=== PATIENT | male | born 1945 | race Caucasian/White ===

== ENCOUNTER 2018-06-14 19:01 | Inpatient (IN) ==
[2018-06-14] MEDS ORDERED: SODIUM CHLORIDE 0.9% 1,000 ML IV STA ×2 (19:51→21:01)
[2018-06-14] MEDS ORDERED: DILTIAZEM 50 MG/10 ML VIAL IV STA (20:01)
[2018-06-14 20:23] LABS: Basophils # 0.1 10*3/uL (0.0-0.2); Basophils % 0.7 % (0.0-0.8); Hematocrit 49.9 VOL% (42.0-52.0); Hemoglobin 16.7 GM/DL (14.0-18.0); Immature Granulocytes % 0.3 %; Immature Granulocytes Absolute 0.03 #; Lymphocytes # 0.2 10*3/uL (1.4-4.0); Lymphocytes % 1.6 % (21.2-54.2); Mean Corpuscular HGB Conc 33.5 GM/DL (32-36); Mean Corpuscular Hemoglobin 31 PG (27-34); Mean Corpuscular Volume 93.8 FL (87-102); Mean Platelet Volume 10.4 FL (9.6-12.0); Monocytes # 0.3 10*3/uL (0.11-0.8); Monocytes % 2.2 % (1.7-12.7); Neutrophils # 10.8 10*3/uL (1.4-7.4); Neutrophils % 95.2 % (38.7-73.9); Platelet Count 157 T/CUMM (130-400); Red Blood Count 5.32 MC/CUMM (3.8-5.5); Red Cell Distribution Width 13.4 % (9.3-17.3); White Blood Count 11.3 T/CUMM (4-12)
[2018-06-14 20:24] LABS: VBG Base Excess -5.7 MEQ/L (0-4); VBG HCO3 18.9 MEQ/L (24-28); VBG Oxygen Saturation 59.4 %; VBG PCO2 41.5 MMHG (41-51); VBG PH 7.305; VBG PO2 37.1 MMHG (17-40)
[2018-06-14] MEDS ORDERED: DILTIAZEM 100 MG VIAL.ADD IV ONE (20:25)
[2018-06-14] MEDS ORDERED: DILTIAZEM 25 MG/5 ML VIAL IV ONE (20:25)
[2018-06-14] MEDS ORDERED: SODIUM CHLORIDE 0.9% 100 ML IV ONE (20:26)
[2018-06-14] MEDS ORDERED: DILTIAZEM INJ 100 MG in SODIUM CHLORIDE 0.9% 100 ML IV SCH (20:30)
[2018-06-14 20:36] LABS: INR 1.4; PT Patient Result 14.7 SECS; Partial Thromboplastin Time 30.3 SECS (0-40)
[2018-06-14 20:43] LABS: Albumin 2.9 G/DL (3.4-5.0); Bilirubin,Total 1.7 MG/DL (0.2-1.0); Calcium 8.1 MG/DL (8.5-10.1); Osmolality,Calculated 285.5 MOS/KG (273-304); Potassium 2.8 MMOL/L (3.5-5.1); Total Protein 6.8 G/DL (6.4-8.3)
[2018-06-14 20:59] LABS: Lymphocytes 2 % (20-55); Segmented Neutrophils 88 % (50-85); Total Cells Counted 100
[2018-06-14 21:00] LABS: Burr Cells Few; Polychromasia Few
[2018-06-14 21:01] LABS: Macrocytosis Slight
[2018-06-14] MEDS ORDERED: ALBUTEROL/IPRATROPIUM 3 ML NEB RESP TX PRN (21:55)
[2018-06-14] MEDS ORDERED: ONDANSETRON 4 MG/2 ML VIAL IV PRN (21:55)
[2018-06-14] MEDS ORDERED: ALBUTEROL 2.5 MG/3 ML NEB RESP TX PRN (21:55)
[2018-06-14] MEDS ORDERED: PROMETHAZINE 25 MG/1 ML VIAL IM PRN (21:55)
[2018-06-14] MEDS ORDERED: MAGNESIUM SULF RIDER 2 GM in PREMIX 1 EACH IV PRN (22:14)
[2018-06-14] MEDS ORDERED: MAGNESIUM SULF RIDER 4 GM in PREMIX 1 EACH IV PRN (22:14)
[2018-06-14 23:02] LABS: Lactic Acid 5.8 MMOL/L (0.4-2.0)
[2018-06-15 00:01] LABS: Hepatitis A Ab IgM Quant 0.14 Index; Hepatitis A Ab IgM Result Negative (Negative); Hepatitis B Core IgM Quant < 0.05 Index; Hepatitis B Core IgM Result Negative (Negative); Hepatitis B Surface Ag Quant 0.15 Index; Hepatitis B Surface Ag Result Negative (Negative); Hepatitis C Virus Ab Quant 0.05 Index; Hepatitis C Virus Ab Result Negative (Negative)
[2018-06-15] MEDS: SODIUM CHLORIDE 0.9% 1,000 ML IV SCH ×2 (00:26→06:05)
[2018-06-15] MEDS: PANTOPRAZOLE 40 MG VIAL IV SCH (00:27)
[2018-06-15] MEDS: traZODone 50 MG TABLET PO PRN (00:27)
[2018-06-15] MEDS: METOPROLOL TARTRATE 25 MG TABLET PO SCH ×3 (00:27→20:57)
[2018-06-15] MEDS ORDERED: LEVOFLOXACIN INJ 500 MG in PREMIX 1 EACH IV SCH (00:30)
[2018-06-15] MEDS ORDERED: DILTIAZEM 25 MG/5 ML VIAL IV ONE (00:30)
[2018-06-15] MEDS ORDERED: dilTIAZem Drip 125 MG/125 ML PREMIX IV SCH (00:30)
[2018-06-15 00:34] LABS: Hematocrit 48.6 VOL% (42.0-52.0); Hemoglobin 16.2 GM/DL (14.0-18.0)
[2018-06-15] MEDS: POTASSIUM CHLORIDE RIDER 10 MEQ in PREMIX 1 EACH IV PRN ×6 (00:35→23:38)
[2018-06-15 01:36] LABS: CKMB % 1.2 %
[2018-06-15] MEDS: metroNIDAZOLE INJ 500 MG in PREMIX 1 EACH IV SCH ×3 (01:44→20:39)
[2018-06-15] MEDS ORDERED: AMIODARONE INJ 450 MG in DEXTROSE 5% 241 ML IV SCH ×2 (03:00→09:00)
[2018-06-15 03:30] LABS: Apearance,Urine CLOUDY (Clear); Bacteria,Urine Many /HPF (Few); Bilirubin,Urine Negative (Negative); Blood, Urine Large mg/dL (Negative); Glucose,Urine (UA) Negative (Negative); Granular Casts,Urine 233 /LPF (0-1); Ketones,Urine Negative (Negative); Nitrite,Urine Negative (Negative); Protein,Urine 100 MG/DL; RBC,Urine 65 /HPF (0-4); Urine Color Amber (Yellow); Urine Specific Gravity 1.016 (1.001-1.035); Urine Urobilinogen < 2.0 EU/DL (0.2-1.0)
[2018-06-15] MEDS ORDERED: SODIUM CHLORIDE 0.9% 500 ML IV ONE ×3 (04:55→18:32)
[2018-06-15 05:00] LABS: Basophils # 0.1 10*3/uL (0.0-0.2); Hematocrit 47.4 VOL% (42.0-52.0); Hemoglobin 15.8 GM/DL (14.0-18.0); Immature Granulocytes % 1.2 %; Immature Granulocytes Absolute 0.07 #; Lymphocytes # 0.1 10*3/uL (1.4-4.0); Lymphocytes % 1.9 % (21.2-54.2); Mean Corpuscular HGB Conc 33.3 GM/DL (32-36); Mean Corpuscular Hemoglobin 31 PG (27-34); Mean Corpuscular Volume 92.4 FL (87-102); Mean Platelet Volume 11.4 FL (9.6-12.0); Monocytes # 0.1 10*3/uL (0.11-0.8); Monocytes % 1.9 % (1.7-12.7); Neutrophils # 5.5 10*3/uL (1.4-7.4); Platelet Count 131 T/CUMM (130-400); Red Blood Count 5.13 MC/CUMM (3.8-5.5); Red Cell Distribution Width 13.2 % (9.3-17.3); White Blood Count 5.9 T/CUMM (4-12)
[2018-06-15] MEDS ORDERED: SODIUM BICARBONATE 50 MEQ/50 ML SYRINGE IV ONE ×4 (05:15→17:24)
[2018-06-15 05:26] LABS: Albumin 2.4 G/DL (3.4-5.0); Bilirubin,Total 1.2 MG/DL (0.2-1.0); Calcium 7.2 MG/DL (8.5-10.1); Osmolality,Calculated 290.4 MOS/KG (273-304); Potassium 3.3 MMOL/L (3.5-5.1); Total Protein 5.7 G/DL (6.4-8.3)
[2018-06-15] MEDS ORDERED: SODIUM CHLORIDE 0.9% 500 ML IV SCH (06:00)
[2018-06-15] MEDS ORDERED: SODIUM CHLORIDE 0.9% 1,000 ML IV SCH ×2 (06:30→12:30)
[2018-06-15 07:25] LABS: Band Neutrophils 24 % (0-10); Lymphocytes 3 % (20-55); Metamyelocytes 18 %; Myelocytes 18 %; Segmented Neutrophils 35 % (50-85); Total Cells Counted 100
[2018-06-15 07:26] LABS: Ovalocytes 1+; Platelet Estimate Decreased
[2018-06-15] MEDS ORDERED: HYDROCORTISONE 100 MG VIAL ONE (07:26)
[2018-06-15] MEDS ORDERED: DEXTROSE 50% 25 GM/50 ML SYRINGE IV ONE (07:26)
[2018-06-15] MEDS ORDERED: LEVOTHYROXINE 100 MCG VIAL IV ONE (07:27)
[2018-06-15] MEDS: DEXTROSE 50% 25 GM/50 ML SYRINGE IV PRN ×2 (07:30→21:19)
[2018-06-15 07:36] LABS: Lactic Acid 6.7 MMOL/L (0.4-2.0)
[2018-06-15] MEDS ORDERED: SODIUM BICARB INJ 100 MEQ in DEXTROSE 5% 1,000 ML IV SCH ×2 (08:00→10:00)
[2018-06-15] MEDS: HYDROCORTISONE 100 MG VIAL IV SCH ×3 (08:15→20:12)
[2018-06-15 08:24] LABS: ABG Base Excess -7.5 MMOL/L (-2.5-2.5); ABG HCO3 18.4 MMOL/L (20-26); ABG Oxygen Saturation 94.9 % (95-100); ABG PCO2 23.7 MM HG (35-48); ABG PH 7.414 (7.35-7.45); ABG PO2 75.7 MM HG (80-95)
[2018-06-15] MEDS ORDERED: PHENYLEPHRINE DRIP 40 MG/250 ML PREMIX IV ONE (08:55)
[2018-06-15] MEDS ORDERED: APIXABAN 5 MG TABLET PO SCH (09:00)
[2018-06-15] MEDS: PHENYLEPHRINE DRIP 40 MG/250 ML PREMIX IV PRN ×2 (09:00→18:45)
[2018-06-15] MEDS: MEROPENEM 1,000 MG in SODIUM CHLORIDE 0.9% 100 ML IV SCH ×2 (09:25→20:52)
[2018-06-15] MEDS: ASPIRIN EC 81 MG TABLET PO SCH (09:32)
[2018-06-15 10:28] LABS: Creatinine,Urine Random 236 MG/DL; Total Protein,Urine Random 329 MG/DL; Urea Nitrogen, Urine Random 392 MG/DL
[2018-06-15] MEDS: POTASSIUM CHLORIDE 20 MEQ TABLET PO SCH ×3 (10:40→19:32)
[2018-06-15] MEDS: MANNITOL IV SCH ×2 (10:49→19:29)
[2018-06-15] MEDS: SODIUM BICARB IV SCH ×2 (10:49→19:29)
[2018-06-15] MEDS: DEXTROSE 5% IV SCH ×2 (10:49→19:29)
[2018-06-15] MEDS: ALBUMIN 25% 25 GM in PREMIX 1 EACH IV SCH ×2 (11:05→19:27)
[2018-06-15] MEDS: miSOPROStol 200 MCG TABLET PO SCH ×3 (12:37→21:15)
[2018-06-15 16:20] LABS: ABG Base Excess -2.1 MMOL/L (-2.5-2.5); ABG HCO3 22.6 MMOL/L (20-26); ABG Oxygen Saturation 97.1 % (95-100); ABG PCO2 22.6 MM HG (35-48); ABG PH 7.522 (7.35-7.45); ABG PO2 82.6 MM HG (80-95); ABG TCO2 15.6 MMOL/L (23-27)
[2018-06-15 17:11] LABS: Calcium 6.8 MG/DL (8.5-10.1); Potassium 3.4 MMOL/L (3.5-5.1)
[2018-06-15] MEDS ORDERED: ALBUMIN 5% 12.5 GM/250 ML VIAL IV ONE ×2 (17:24→18:31)
[2018-06-15] MEDS ORDERED: CALCIUM CHLORIDE 1,000 MG/10 ML VIAL IV ONE (18:31)
[2018-06-15] MEDS ORDERED: SEVOFLURANE 1 UNIT/15 MINUTE INH ONE (18:31)
[2018-06-15] MEDS ORDERED: fentaNYL 100 MCG/2 ML VIAL ONE (18:32)
[2018-06-15] MEDS ORDERED: VECURONIUM 10 MG VIAL IV ONE (18:32)
[2018-06-15] MEDS ORDERED: ETOMIDATE 40 MG/20 ML VIAL IV ONE (18:32)
[2018-06-15] MEDS ORDERED: PHENYLEPHRINE 10 MG/1 ML VIAL IV ONE (18:32)
[2018-06-15] MEDS ORDERED: MIDAZOLAM 2 MG/2 ML VIAL ONE (18:32)
[2018-06-15] MEDS ORDERED: SODIUM CHLORIDE 0.9% 1,000 ML IV ONE ×2 (18:32→22:22)
[2018-06-15] MEDS ORDERED: HEPARIN/NACL 0.9% 2 UNITS/ML 500 ML IV ONE (18:36)
[2018-06-15 19:22] LABS: Basophils % 0.1 % (0.0-0.8); Eosinophils % 0.2 % (0.00-10.9); Hematocrit 38.8 VOL% (42.0-52.0); Hemoglobin 13.1 GM/DL (14.0-18.0); Immature Granulocytes % 0.5 %; Immature Granulocytes Absolute 0.05 #; Lymphocytes # 0.1 10*3/uL (1.4-4.0); Mean Corpuscular HGB Conc 33.8 GM/DL (32-36); Mean Corpuscular Hemoglobin 31 PG (27-34); Mean Corpuscular Volume 92.4 FL (87-102); Mean Platelet Volume 11.9 FL (9.6-12.0); Monocytes # 0.3 10*3/uL (0.11-0.8); Monocytes % 2.7 % (1.7-12.7); Neutrophils # 8.8 10*3/uL (1.4-7.4); Neutrophils % 95.5 % (38.7-73.9); Platelet Count 106 T/CUMM (130-400); Red Cell Distribution Width 13.6 % (9.3-17.3); White Blood Count 9.2 T/CUMM (4-12)
[2018-06-15 19:23] LABS: ABG Base Excess -2.8 MMOL/L (-2.5-2.5); ABG HCO3 22.1 MMOL/L (20-26); ABG Oxygen Saturation 99.6 % (95-100); ABG PCO2 37.9 MM HG (35-48); ABG PH 7.373 (7.35-7.45); ABG TCO2 18.9 MMOL/L (23-27)
[2018-06-15] MEDS: CLINDAMYCIN INJ 900 MG in PREMIX 1 EACH IV SCH (19:31)
[2018-06-15 19:49] LABS: Lactic Acid 3.8 MMOL/L (0.4-2.0)
[2018-06-15 19:58] LABS: Alanine Aminotransferase 190 U/L (16-61); Albumin 2.5 G/DL (3.4-5.0); Alkaline Phosphatase 36 U/L (45-117); Aspartate Amino Transferase 553 U/L (0-37); Blood Urea Nitrogen 56 MG/DL (7-18); Calcium 6.4 MG/DL (8.5-10.1); Glucose 71 MG/DL (74-106); Osmolality,Calculated 290.5 MOS/KG (273-304); Potassium 3.5 MMOL/L (3.5-5.1); Sodium 139 MMOL/L (136-145)
[2018-06-15] MEDS: PROPOFOL 1,000 MG/100 ML BOTTLE IV SCH (20:20)
[2018-06-15] MEDS: PENICILLIN G POTASSIUM INJ 4,000,000 UNIT in SODIUM CHLORIDE 0.9% 100 ML IV SCH (20:55)
[2018-06-15 21:09] LABS: Band Neutrophils 22 % (0-10); Lymphocytes 7 % (20-55); Platelet Estimate Normal; Segmented Neutrophils 54 % (50-85); Total Cells Counted 100
[2018-06-15] MEDS: PHENYLEPHRINE INJ 160 MG in SODIUM CHLORIDE 0.9% 234 ML IV PRN (21:21)
[2018-06-15] MEDS: POTASSIUM CHLORIDE RIDER 20 MEQ in PREMIX 1 EACH IV PRN (21:23)
[2018-06-16] MEDS: CLINDAMYCIN INJ 900 MG in PREMIX 1 EACH IV SCH ×3 (00:35→16:39)
[2018-06-16] MEDS: PANTOPRAZOLE 40 MG VIAL IV SCH (00:35)
[2018-06-16] MEDS: PENICILLIN G POTASSIUM INJ 4,000,000 UNIT in SODIUM CHLORIDE 0.9% 100 ML IV SCH ×6 (01:05→20:25)
[2018-06-16] MEDS ORDERED: SODIUM CHLORIDE 0.9% 1,000 ML IV ONE (02:25)
[2018-06-16] MEDS: HYDROCORTISONE 100 MG VIAL IV SCH ×4 (02:31→20:26)
[2018-06-16] MEDS: ALBUMIN 25% 25 GM in PREMIX 1 EACH IV SCH ×3 (03:19→17:44)
[2018-06-16 04:42] LABS: ABG HCO3 19.5 MMOL/L (20-26); ABG Oxygen Saturation 99.5 % (95-100); ABG PCO2 30.8 MM HG (35-48); ABG PH 7.376 (7.35-7.45); ABG TCO2 15.8 MMOL/L (23-27)
[2018-06-16] MEDS: metroNIDAZOLE INJ 500 MG in PREMIX 1 EACH IV SCH (04:42)
[2018-06-16 04:49] LABS: Basophils % 0.1 % (0.0-0.8); Eosinophils % 0.2 % (0.00-10.9); Hematocrit 37.8 VOL% (42.0-52.0); Hemoglobin 12.8 GM/DL (14.0-18.0); Immature Granulocytes % 3.1 %; Lymphocytes # 0.2 10*3/uL (1.4-4.0); Lymphocytes % 1.8 % (21.2-54.2); Mean Corpuscular HGB Conc 33.9 GM/DL (32-36); Mean Corpuscular Hemoglobin 31 PG (27-34); Mean Corpuscular Volume 92.4 FL (87-102); Mean Platelet Volume 11.9 FL (9.6-12.0); Monocytes # 0.3 10*3/uL (0.11-0.8); Monocytes % 2.2 % (1.7-12.7); Neutrophils # 12.1 10*3/uL (1.4-7.4); Neutrophils % 92.6 % (38.7-73.9); Platelet Count 96 T/CUMM (130-400); Red Blood Count 4.09 MC/CUMM (3.8-5.5); Red Cell Distribution Width 13.8 % (9.3-17.3); White Blood Count 13.1 T/CUMM (4-12)
[2018-06-16 05:14] LABS: Lactic Acid 4.5 MMOL/L (0.4-2.0)
[2018-06-16 05:17] LABS: Albumin 2.7 G/DL (3.4-5.0); Bilirubin,Total 2.1 MG/DL (0.2-1.0); Calcium 6.1 MG/DL (8.5-10.1); Osmolality,Calculated 293.5 MOS/KG (273-304); Total Protein 4.8 G/DL (6.4-8.3)
[2018-06-16 05:30] LABS: Band Neutrophils 9 % (0-10); Lymphocytes 2 % (20-55); Metamyelocytes 1 %; Myelocytes 2 %; Segmented Neutrophils 83 % (50-85); Total Cells Counted 100
[2018-06-16] MEDS ORDERED: ALBUMIN 5% 25 GM in PREMIX 1 EACH IV ONE (05:30)
[2018-06-16 05:31] LABS: Hypochromasia 1+; Platelet Estimate Decreased
[2018-06-16] MEDS ORDERED: SODIUM BICARBONATE 50 MEQ/50 ML SYRINGE IV ONE (07:11)
[2018-06-16] MEDS: PHENYLEPHRINE INJ 160 MG in SODIUM CHLORIDE 0.9% 234 ML IV PRN ×2 (07:17→18:45)
[2018-06-16] MEDS: PROPOFOL 1,000 MG/100 ML BOTTLE IV SCH ×2 (07:26→20:14)
[2018-06-16] MEDS: MEROPENEM 1,000 MG in SODIUM CHLORIDE 0.9% 100 ML IV SCH (09:09)
[2018-06-16] MEDS: ASPIRIN EC 81 MG TABLET PO SCH (09:26)
[2018-06-16] MEDS: miSOPROStol 200 MCG TABLET PO SCH ×4 (09:26→20:25)
[2018-06-16] MEDS: METOPROLOL TARTRATE 25 MG TABLET PO SCH ×2 (09:26→20:25)
[2018-06-16] MEDS: MANNITOL IV SCH (10:50)
[2018-06-16] MEDS: DEXTROSE 5% IV SCH (10:50)
[2018-06-16] MEDS: SODIUM BICARB IV SCH (10:50)
[2018-06-16] MEDS ORDERED: SEVOFLURANE 1 UNIT/15 MINUTE INH ONE (12:08)
[2018-06-16] MEDS ORDERED: ROCURONIUM 100 MG/10 ML VIAL IV ONE (12:08)
[2018-06-16] MEDS ORDERED: PROPOFOL 200 MG/20 ML VIAL IV ONE (12:08)
[2018-06-16] MEDS ORDERED: MIDAZOLAM 2 MG/2 ML VIAL ONE (12:08)
[2018-06-16] MEDS ORDERED: fentaNYL 100 MCG/2 ML VIAL ONE (12:08)
[2018-06-16 15:20] LABS: Lactic Acid 4.1 MMOL/L (0.4-2.0)
[2018-06-16] MEDS: HYDROmorphone 2 MG/1 ML VIAL IV PRN (21:21)
[2018-06-17] MEDS: PANTOPRAZOLE 40 MG VIAL IV SCH ×2 (00:59→23:47)
[2018-06-17] MEDS: PENICILLIN G POTASSIUM INJ 4,000,000 UNIT in SODIUM CHLORIDE 0.9% 100 ML IV SCH ×4 (01:01→16:00)
[2018-06-17] MEDS: CLINDAMYCIN INJ 900 MG in PREMIX 1 EACH IV SCH ×4 (01:02→23:49)
[2018-06-17] MEDS: HYDROCORTISONE 100 MG VIAL IV SCH ×4 (01:48→21:07)
[2018-06-17] MEDS: ALBUMIN 25% 25 GM in PREMIX 1 EACH IV SCH ×3 (01:50→17:32)
[2018-06-17] MEDS: DEXTROSE 5% IV SCH ×3 (01:55→17:18)
[2018-06-17] MEDS: MANNITOL IV SCH ×3 (01:55→17:18)
[2018-06-17] MEDS: SODIUM BICARB IV SCH ×3 (01:55→17:18)
[2018-06-17] MEDS: HYDROmorphone 2 MG/1 ML VIAL IV PRN ×2 (05:39→15:00)
[2018-06-17 05:47] LABS: ABG Base Excess -2.6 MMOL/L (-2.5-2.5); ABG HCO3 22.3 MMOL/L (20-26); ABG Oxygen Saturation 99.2 % (95-100); ABG PCO2 32.9 MM HG (35-48); ABG PH 7.415 (7.35-7.45); ABG TCO2 18.5 MMOL/L (23-27)
[2018-06-17 06:00] LABS: Basophils % 0.1 % (0.0-0.8); Eosinophils % 0.2 % (0.00-10.9); Hematocrit 37.8 VOL% (42.0-52.0); Hemoglobin 12.6 GM/DL (14.0-18.0); Immature Granulocytes Absolute 0.45 #; Lymphocytes # 0.3 10*3/uL (1.4-4.0); Lymphocytes % 1.7 % (21.2-54.2); Mean Corpuscular HGB Conc 33.3 GM/DL (32-36); Mean Corpuscular Hemoglobin 31 PG (27-34); Mean Corpuscular Volume 92.2 FL (87-102); Mean Platelet Volume 13.5 FL (9.6-12.0); Monocytes # 0.2 10*3/uL (0.11-0.8); Monocytes % 1.4 % (1.7-12.7); Neutrophils # 14.1 10*3/uL (1.4-7.4); Neutrophils % 93.6 % (38.7-73.9); Red Cell Distribution Width 13.8 % (9.3-17.3); White Blood Count 15.1 T/CUMM (4-12)
[2018-06-17 06:10] LABS: Platelet Count 60 T/CUMM (130-400)
[2018-06-17 06:14] LABS: Albumin 2.8 G/DL (3.4-5.0); Bilirubin,Total 1.7 MG/DL (0.2-1.0); Osmolality,Calculated 299.5 MOS/KG (273-304); Potassium 3.9 MMOL/L (3.5-5.1); Total Protein 4.9 G/DL (6.4-8.3)
[2018-06-17 06:16] LABS: Calcium 5.8 MG/DL (8.5-10.1)
[2018-06-17] MEDS: POTASSIUM CHLORIDE RIDER 20 MEQ in PREMIX 1 EACH IV PRN (06:24)
[2018-06-17] MEDS ORDERED: CALCIUM GLUCONATE 2,000 MG in SODIUM CHLORIDE 0.9% 100 ML IV ONE (06:33)
[2018-06-17 06:45] LABS: Lymphocytes 3 % (20-55); Platelet Estimate Normal; Polychromasia Few; Segmented Neutrophils 82 % (50-85); Total Cells Counted 100
[2018-06-17] MEDS: PHENYLEPHRINE INJ 160 MG in SODIUM CHLORIDE 0.9% 234 ML IV PRN ×2 (07:36→21:25)
[2018-06-17] MEDS: METOPROLOL TARTRATE 25 MG TABLET PO SCH (09:30)
[2018-06-17] MEDS: SODIUM HYPOCHLORITE 0.25% IRRIG 473 ML BOTTLE TOP SCH (09:30)
[2018-06-17] MEDS: ASPIRIN EC 81 MG TABLET PO SCH (09:31)
[2018-06-17] MEDS: miSOPROStol 200 MCG TABLET PO SCH ×4 (09:46→21:06)
[2018-06-17] MEDS ORDERED: ADENOSINE 6 MG/2 ML VIAL ONE ×2 (12:17→12:25)
[2018-06-17] MEDS ORDERED: ADENOSINE 6 MG/2 ML VIAL IV ONE ×2 (12:43→12:44)
[2018-06-17] MEDS ORDERED: ASCORBIC ACID 500 MG/1 ML VIAL IV SCH (13:00)
[2018-06-17] MEDS: PROPOFOL 1,000 MG/100 ML BOTTLE IV SCH ×2 (13:54→21:06)
[2018-06-17] MEDS: ASPIRIN CHEW 81 MG TABLET PO SCH (13:56)
[2018-06-17] MEDS: ASCORBIC ACID INJ 1,500 MG in SODIUM CHLORIDE 0.9% 100 ML IV SCH ×2 (16:00→21:07)
[2018-06-17] MEDS: THIAMINE 200 MG/2 ML VIAL IV SCH (16:00)
[2018-06-17] MEDS ORDERED: HEPARIN 10,000 UNIT/10 ML VIAL IV PRN (17:03)
[2018-06-17] MEDS: DEXTROSE 50% 25 GM/50 ML SYRINGE IV PRN (17:37)
[2018-06-18] MEDS: HYDROCORTISONE 100 MG VIAL IV SCH ×4 (01:59→20:36)
[2018-06-18] MEDS: THIAMINE 200 MG/2 ML VIAL IV SCH ×2 (02:05→14:19)
[2018-06-18] MEDS: ALBUMIN 25% 25 GM in PREMIX 1 EACH IV SCH ×3 (02:09→18:16)
[2018-06-18] MEDS: ASCORBIC ACID INJ 1,500 MG in SODIUM CHLORIDE 0.9% 100 ML IV SCH ×4 (03:34→20:36)
[2018-06-18] MEDS: PENICILLIN G POTASSIUM INJ 4,000,000 UNIT in SODIUM CHLORIDE 0.9% 100 ML IV SCH (03:34)
[2018-06-18] MEDS: PROPOFOL 1,000 MG/100 ML BOTTLE IV SCH ×3 (05:30→19:23)
[2018-06-18 05:47] LABS: ABG HCO3 24.4 MMOL/L (20-26); ABG PCO2 32.7 MM HG (35-48); ABG PH 7.457 (7.35-7.45); ABG TCO2 20.3 MMOL/L (23-27)
[2018-06-18 05:53] LABS: Basophils # 0.2 10*3/uL (0.0-0.2); Basophils % 0.9 % (0.0-0.8); Eosinophils % 0.1 % (0.00-10.9); Hematocrit 34.5 VOL% (42.0-52.0); Hemoglobin 11.9 GM/DL (14.0-18.0); Immature Granulocytes % 3.2 %; Immature Granulocytes Absolute 0.61 #; Lymphocytes # 0.6 10*3/uL (1.4-4.0); Lymphocytes % 3.4 % (21.2-54.2); Mean Corpuscular HGB Conc 34.5 GM/DL (32-36); Mean Corpuscular Hemoglobin 31 PG (27-34); Mean Platelet Volume 13.2 FL (9.6-12.0); Monocytes # 0.4 10*3/uL (0.11-0.8); Neutrophils % 90.4 % (38.7-73.9); Platelet Count 47 T/CUMM (130-400); Red Blood Count 3.79 MC/CUMM (3.8-5.5); Red Cell Distribution Width 13.8 % (9.3-17.3); White Blood Count 18.8 T/CUMM (4-12)
[2018-06-18 06:23] LABS: Albumin 2.6 G/DL (3.4-5.0); Bilirubin,Total 2.3 MG/DL (0.2-1.0); Osmolality,Calculated 296.5 MOS/KG (273-304); Potassium 3.6 MMOL/L (3.5-5.1); Total Protein 5.2 G/DL (6.4-8.3)
[2018-06-18 06:24] LABS: Band Neutrophils 5 % (0-10); Lymphocytes 6 % (20-55); Segmented Neutrophils 83 % (50-85); Total Cells Counted 100
[2018-06-18 06:25] LABS: Calcium 5.8 MG/DL (8.5-10.1); Hypochromasia 1+; Microcytosis 1+; Ovalocytes Slight
[2018-06-18 06:26] LABS: Acanthocytes Few; Platelet Estimate Decreased
[2018-06-18] MEDS ORDERED: CALCIUM GLUCONATE 2,000 MG in SODIUM CHLORIDE 0.9% 100 ML IV ONE (08:18)
[2018-06-18] MEDS: MANNITOL IV SCH (09:45)
[2018-06-18] MEDS: SODIUM BICARB IV SCH (09:45)
[2018-06-18] MEDS: DEXTROSE 5% IV SCH (09:45)
[2018-06-18] MEDS: SODIUM HYPOCHLORITE 0.25% IRRIG 473 ML BOTTLE TOP SCH (09:47)
[2018-06-18] MEDS: ASPIRIN CHEW 81 MG TABLET PO SCH (09:53)
[2018-06-18] MEDS: miSOPROStol 200 MCG TABLET PO SCH ×4 (09:53→20:36)
[2018-06-18] MEDS: CLINDAMYCIN INJ 900 MG in PREMIX 1 EACH IV SCH ×2 (10:03→16:01)
[2018-06-18] MEDS ORDERED: GLUCAGON 1 MG VIAL IM PRN (13:03)
[2018-06-18 13:06] LABS: Albumin 2.8 G/DL (3.4-5.0); Calcium 6.2 MG/DL (8.5-10.1); Osmolality,Calculated 294.8 MOS/KG (273-304); Potassium 3.4 MMOL/L (3.5-5.1)
[2018-06-18] MEDS: PHENYLEPHRINE INJ 160 MG in SODIUM CHLORIDE 0.9% 234 ML IV PRN (13:50)
[2018-06-18] MEDS: INSULIN REGULAR 100 UNIT/ML SUBCUT SCH (18:09)
[2018-06-18] MEDS: HYDROmorphone 2 MG/1 ML VIAL IV PRN (21:05)
[2018-06-19] MEDS: CLINDAMYCIN INJ 900 MG in PREMIX 1 EACH IV SCH ×3 (00:14→15:44)
[2018-06-19] MEDS: PANTOPRAZOLE 40 MG VIAL IV SCH (00:14)
[2018-06-19] MEDS: INSULIN REGULAR 100 UNIT/ML SUBCUT SCH ×4 (00:16→18:10)
[2018-06-19] MEDS: ASCORBIC ACID INJ 1,500 MG in SODIUM CHLORIDE 0.9% 100 ML IV SCH ×4 (02:01→20:46)
[2018-06-19] MEDS: ALBUMIN 25% 25 GM in PREMIX 1 EACH IV SCH ×3 (02:02→17:30)
[2018-06-19] MEDS: THIAMINE 200 MG/2 ML VIAL IV SCH ×2 (02:02→14:16)
[2018-06-19] MEDS: HYDROCORTISONE 100 MG VIAL IV SCH ×4 (02:02→20:46)
[2018-06-19] MEDS: PROPOFOL 1,000 MG/100 ML BOTTLE IV SCH ×4 (03:11→19:06)
[2018-06-19] MEDS ORDERED: HEPARIN/NACL 0.9% 2 UNITS/ML 500 ML IV ONE (04:57)
[2018-06-19 05:00] LABS: ABG Base Excess -0.9 MMOL/L (-2.5-2.5); ABG HCO3 23.6 MMOL/L (20-26); ABG Oxygen Saturation 98.7 % (95-100); ABG PCO2 33.6 MM HG (35-48); ABG PH 7.436 (7.35-7.45); ABG TCO2 20.2 MMOL/L (23-27)
[2018-06-19 05:44] LABS: Calcium 6.2 MG/DL (8.5-10.1); Osmolality,Calculated 305.5 MOS/KG (273-304); Potassium 3.7 MMOL/L (3.5-5.1)
[2018-06-19 05:57] LABS: Basophils # 0.1 10*3/uL (0.0-0.2); Basophils % 0.3 % (0.0-0.8); Eosinophils % 0.1 % (0.00-10.9); Hematocrit 34.4 VOL% (42.0-52.0); Hemoglobin 11.7 GM/DL (14.0-18.0); Immature Granulocytes % 3.2 %; Immature Granulocytes Absolute 0.61 #; Lymphocytes # 0.8 10*3/uL (1.4-4.0); Lymphocytes % 4.3 % (21.2-54.2); Mean Corpuscular Hemoglobin 31 PG (27-34); Mean Corpuscular Volume 91.2 FL (87-102); Monocytes # 0.3 10*3/uL (0.11-0.8); Monocytes % 1.4 % (1.7-12.7); NRBC # 0.06 10*3/uL; Neutrophils # 17.2 10*3/uL (1.4-7.4); Neutrophils % 90.7 % (38.7-73.9); Prealbumin 5.7 MG/DL (20-40); Red Blood Count 3.77 MC/CUMM (3.8-5.5); Red Cell Distribution Width 14.1 % (9.3-17.3)
[2018-06-19 05:59] LABS: Platelet Count 24 T/CUMM (130-400)
[2018-06-19 06:03] LABS: Hypochromasia Slight; Platelet Estimate Decreased
[2018-06-19] MEDS: POTASSIUM CHLORIDE RIDER 20 MEQ in PREMIX 1 EACH IV PRN (06:35)
[2018-06-19] MEDS: miSOPROStol 200 MCG TABLET PO SCH ×4 (08:00→20:46)
[2018-06-19] MEDS: SODIUM HYPOCHLORITE 0.25% IRRIG 473 ML BOTTLE TOP SCH (09:00)
[2018-06-19 09:41] LABS: INR 1.1; PT Patient Result 11.7 SECS
[2018-06-19 09:48] LABS: Fibrinogen Quant Value 447 MG% (200-400)
[2018-06-19] MEDS: HYDROmorphone 2 MG/1 ML VIAL IV PRN (11:07)
[2018-06-19] MEDS ORDERED: ROCURONIUM 100 MG/10 ML VIAL IV ONE (13:43)
[2018-06-19] MEDS ORDERED: MIDAZOLAM 2 MG/2 ML VIAL ONE (13:43)
[2018-06-19] MEDS ORDERED: SODIUM CHLORIDE 0.9% 1,000 ML IV ONE (13:43)
[2018-06-19] MEDS ORDERED: SEVOFLURANE 1 UNIT/15 MINUTE INH ONE (13:43)
[2018-06-19] MEDS: ASPIRIN CHEW 81 MG TABLET PO SCH (14:17)
[2018-06-19] MEDS: PHENYLEPHRINE INJ 160 MG in SODIUM CHLORIDE 0.9% 234 ML IV PRN (19:00)
[2018-06-20] MEDS: PANTOPRAZOLE 40 MG VIAL IV SCH (00:06)
[2018-06-20] MEDS: INSULIN REGULAR 100 UNIT/ML SUBCUT SCH ×4 (00:52→17:34)
[2018-06-20] MEDS: CLINDAMYCIN INJ 900 MG in PREMIX 1 EACH IV SCH ×3 (00:52→15:18)
[2018-06-20] MEDS: ALBUMIN 25% 25 GM in PREMIX 1 EACH IV SCH ×3 (02:36→17:34)
[2018-06-20] MEDS: THIAMINE 200 MG/2 ML VIAL IV SCH ×2 (02:37→15:15)
[2018-06-20] MEDS: HYDROCORTISONE 100 MG VIAL IV SCH ×4 (02:39→21:12)
[2018-06-20] MEDS: ASCORBIC ACID INJ 1,500 MG in SODIUM CHLORIDE 0.9% 100 ML IV SCH ×4 (02:42→21:13)
[2018-06-20] MEDS: PROPOFOL 1,000 MG/100 ML BOTTLE IV SCH ×3 (02:43→21:12)
[2018-06-20] MEDS: HYDROmorphone 2 MG/1 ML VIAL IV PRN (03:01)
[2018-06-20 04:09] LABS: Basophils % 0.1 % (0.0-0.8); Hematocrit 28.2 VOL% (42.0-52.0); Hemoglobin 9.6 GM/DL (14.0-18.0); Immature Granulocytes Absolute 0.56 #; Lymphocytes # 1.1 10*3/uL (1.4-4.0); Mean Corpuscular Hemoglobin 31 PG (27-34); Mean Corpuscular Volume 91.6 FL (87-102); Mean Platelet Volume 13.8 FL (9.6-12.0); Monocytes # 0.2 10*3/uL (0.11-0.8); Monocytes % 0.9 % (1.7-12.7); NRBC # 0.03 10*3/uL; Neutrophils # 16.5 10*3/uL (1.4-7.4); Red Blood Count 3.08 MC/CUMM (3.8-5.5); Red Cell Distribution Width 14.3 % (9.3-17.3); White Blood Count 18.4 T/CUMM (4-12)
[2018-06-20 04:11] LABS: ABG Base Excess -0.5 MMOL/L (-2.5-2.5); ABG HCO3 23.6 MMOL/L (20-26); ABG PCO2 36.4 MM HG (35-48); ABG PH 7.429 (7.35-7.45); ABG PO2 126.5 MM HG (80-95); ABG TCO2 24.7 MMOL/L (23-27)
[2018-06-20 04:14] LABS: Platelet Count 38 T/CUMM (130-400)
[2018-06-20 04:35] LABS: Calcium 6.4 MG/DL (8.5-10.1); Osmolality,Calculated 304.4 MOS/KG (273-304); Potassium 3.5 MMOL/L (3.5-5.1)
[2018-06-20] MEDS: POTASSIUM CHLORIDE RIDER 20 MEQ in PREMIX 1 EACH IV PRN (06:20)
[2018-06-20 06:31] LABS: Lymphocytes 7 % (20-55); Metamyelocytes 1 %; Segmented Neutrophils 91 % (50-85); Total Cells Counted 100
[2018-06-20 06:33] LABS: Platelet Estimate Decreased; Polychromasia Few
[2018-06-20] MEDS: SODIUM HYPOCHLORITE 0.25% IRRIG 473 ML BOTTLE TOP SCH (07:25)
[2018-06-20] MEDS: miSOPROStol 200 MCG TABLET PO SCH ×4 (09:38→21:13)
[2018-06-20] MEDS: ASPIRIN CHEW 81 MG TABLET PO SCH (11:09)
[2018-06-20] MEDS: FAMOTIDINE 20 MG TABLET PO SCH (21:13)
[2018-06-21] MEDS: PANTOPRAZOLE 40 MG VIAL IV SCH ×2 (00:26→23:40)
[2018-06-21] MEDS: HYDROmorphone 2 MG/1 ML VIAL IV PRN ×2 (01:07→23:46)
[2018-06-21] MEDS: INSULIN REGULAR 100 UNIT/ML SUBCUT SCH ×4 (01:08→19:01)
[2018-06-21] MEDS: CLINDAMYCIN INJ 900 MG in PREMIX 1 EACH IV SCH ×4 (01:08→23:45)
[2018-06-21] MEDS: THIAMINE 200 MG/2 ML VIAL IV SCH (02:41)
[2018-06-21] MEDS: HYDROCORTISONE 100 MG VIAL IV SCH ×4 (02:43→20:35)
[2018-06-21] MEDS: ALBUMIN 25% 25 GM in PREMIX 1 EACH IV SCH ×3 (02:45→20:35)
[2018-06-21] MEDS: ASCORBIC ACID INJ 1,500 MG in SODIUM CHLORIDE 0.9% 100 ML IV SCH ×2 (02:46→08:47)
[2018-06-21 05:34] LABS: ABG Base Excess -3.4 MMOL/L (-2.5-2.5); ABG HCO3 20.7 MMOL/L (20-26); ABG Oxygen Saturation 97.8 % (95-100); ABG PCO2 33.6 MM HG (35-48); ABG PH 7.408 (7.35-7.45); ABG PO2 130.7 MM HG (80-95); ABG TCO2 21.8 MMOL/L (23-27)
[2018-06-21 05:42] LABS: Basophils % 0.1 % (0.0-0.8); Hematocrit 22.9 VOL% (42.0-52.0); Hemoglobin 7.8 GM/DL (14.0-18.0); Immature Granulocytes % 5.3 %; Lymphocytes # 1.9 10*3/uL (1.4-4.0); Lymphocytes % 7.4 % (21.2-54.2); Mean Corpuscular HGB Conc 34.1 GM/DL (32-36); Mean Corpuscular Hemoglobin 31 PG (27-34); Mean Platelet Volume 14.2 FL (9.6-12.0); Monocytes # 0.3 10*3/uL (0.11-0.8); Monocytes % 1.2 % (1.7-12.7); Neutrophils # 22.6 10*3/uL (1.4-7.4); Red Blood Count 2.49 MC/CUMM (3.8-5.5); Red Cell Distribution Width 14.3 % (9.3-17.3); White Blood Count 26.2 T/CUMM (4-12)
[2018-06-21 05:45] LABS: Platelet Count 57 T/CUMM (130-400)
[2018-06-21 05:54] LABS: Calcium 5.9 MG/DL (8.5-10.1); Osmolality,Calculated 318.4 MOS/KG (273-304); Potassium 3.7 MMOL/L (3.5-5.1)
[2018-06-21 06:09] LABS: Lymphocytes 11 % (20-55); Metamyelocytes 1 %; Platelet Estimate Decreased; Segmented Neutrophils 86 % (50-85); Total Cells Counted 100
[2018-06-21 06:10] LABS: Hypochromasia 2+
[2018-06-21] MEDS: PROPOFOL 1,000 MG/100 ML BOTTLE IV SCH ×5 (06:33→22:59)
[2018-06-21] MEDS: miSOPROStol 200 MCG TABLET PO SCH ×4 (08:51→20:35)
[2018-06-21] MEDS: FAMOTIDINE 20 MG TABLET PO SCH ×2 (08:52→20:35)
[2018-06-21] MEDS: SODIUM HYPOCHLORITE 0.25% IRRIG 473 ML BOTTLE TOP SCH (09:50)
[2018-06-21] MEDS: CALCITRIOL 0.5 MCG CAPSULE PER TUBE SCH (13:18)
[2018-06-21] MEDS: PHENYLEPHRINE INJ 160 MG in SODIUM CHLORIDE 0.9% 234 ML IV PRN (15:40)
[2018-06-21] MEDS: CALCIUM (CARBONATE) 500 MG TABLET PER TUBE SCH ×2 (17:05→20:35)
[2018-06-21 19:40] LABS: HIT Interpretation Negative (Negative)
[2018-06-21] MEDS: traZODone 50 MG TABLET PO PRN (20:35)
[2018-06-21] MEDS ORDERED: AMIODARONE INJ 450 MG in DEXTROSE 5% 241 ML IV SCH (23:00)
[2018-06-22] MEDS ORDERED: SODIUM CHLORIDE 0.9% 500 ML IV ONE (00:32)
[2018-06-22] MEDS: INSULIN REGULAR 100 UNIT/ML SUBCUT SCH ×4 (00:45→17:38)
[2018-06-22] MEDS: HYDROCORTISONE 100 MG VIAL IV SCH ×2 (03:13→09:29)
[2018-06-22 04:45] LABS: ABG Base Excess -3.3 MMOL/L (-2.5-2.5); ABG HCO3 20.8 MMOL/L (20-26); ABG PCO2 33.3 MM HG (35-48); ABG PH 7.413 (7.35-7.45); ABG PO2 142.1 MM HG (80-95); ABG TCO2 21.8 MMOL/L (23-27)
[2018-06-22 04:53] LABS: Basophils % 0.2 % (0.0-0.8); Hematocrit 24.7 VOL% (42.0-52.0); Hemoglobin 8.4 GM/DL (14.0-18.0); Immature Granulocytes % 4.7 %; Immature Granulocytes Absolute 1.15 #; Lymphocytes # 1.3 10*3/uL (1.4-4.0); Lymphocytes % 5.1 % (21.2-54.2); Mean Corpuscular Hemoglobin 31 PG (27-34); Mean Corpuscular Volume 90.1 FL (87-102); Mean Platelet Volume 13.6 FL (9.6-12.0); Monocytes # 0.3 10*3/uL (0.11-0.8); Monocytes % 1.2 % (1.7-12.7); Neutrophils # 21.9 10*3/uL (1.4-7.4); Neutrophils % 88.8 % (38.7-73.9); Platelet Count 89 T/CUMM (130-400); Red Blood Count 2.74 MC/CUMM (3.8-5.5); Red Cell Distribution Width 15.5 % (9.3-17.3); White Blood Count 24.7 T/CUMM (4-12)
[2018-06-22 05:30] LABS: Albumin 2.5 G/DL (3.4-5.0); Bilirubin,Total 1.7 MG/DL (0.2-1.0); Calcium 5.9 MG/DL (8.5-10.1); Osmolality,Calculated 313.5 MOS/KG (273-304); Potassium 3.7 MMOL/L (3.5-5.1); Total Protein 5.1 G/DL (6.4-8.3)
[2018-06-22] MEDS: PROPOFOL 1,000 MG/100 ML BOTTLE IV SCH ×4 (05:55→23:15)
[2018-06-22 06:06] LABS: Lymphocytes 1 % (20-55); Platelet Estimate Decreased; Polychromasia Few; Segmented Neutrophils 98 % (50-85); Total Cells Counted 100
[2018-06-22] MEDS: ALBUMIN 25% 25 GM in PREMIX 1 EACH IV SCH ×3 (06:25→21:00)
[2018-06-22] MEDS: AMIODARONE INJ 450 MG in DEXTROSE 5% 241 ML IV SCH ×2 (06:40→21:50)
[2018-06-22] MEDS ORDERED: HEPARIN/NACL 0.9% 2 UNITS/ML 500 ML IV ONE (08:02)
[2018-06-22] MEDS: POTASSIUM CHLORIDE RIDER 20 MEQ in PREMIX 1 EACH IV PRN (08:15)
[2018-06-22] MEDS: CLINDAMYCIN INJ 900 MG in PREMIX 1 EACH IV SCH ×2 (09:28→16:12)
[2018-06-22] MEDS: miSOPROStol 200 MCG TABLET PO SCH ×4 (09:29→21:00)
[2018-06-22] MEDS: CALCIUM (CARBONATE) 500 MG TABLET PER TUBE SCH ×3 (09:29→21:00)
[2018-06-22] MEDS: FAMOTIDINE 20 MG TABLET PO SCH ×2 (09:29→21:00)
[2018-06-22] MEDS: CALCITRIOL 0.5 MCG CAPSULE PER TUBE SCH (09:29)
[2018-06-22] MEDS: SODIUM HYPOCHLORITE 0.25% IRRIG 473 ML BOTTLE TOP SCH (09:30)
[2018-06-22] MEDS: HYDROmorphone 2 MG/1 ML VIAL IV PRN ×2 (09:41→16:13)
[2018-06-22] MEDS ORDERED: MAGNESIUM SULF RIDER 2 GM in PREMIX 1 EACH IV ONE (10:24)
[2018-06-22] MEDS ORDERED: POTASSIUM CHLORIDE RIDER 20 MEQ in PREMIX 1 EACH IV PRN (10:24)
[2018-06-22] MEDS: ASCORBIC ACID 500 MG TABLET PO SCH ×2 (11:42→21:00)
[2018-06-22] MEDS: POTASSIUM CHLORIDE 20 MEQ TABLET PO SCH (11:42)
[2018-06-23] MEDS: PANTOPRAZOLE 40 MG VIAL IV SCH ×2 (00:05→23:51)
[2018-06-23] MEDS: CLINDAMYCIN INJ 900 MG in PREMIX 1 EACH IV SCH (00:06)
[2018-06-23] MEDS: INSULIN REGULAR 100 UNIT/ML SUBCUT SCH ×5 (00:23→23:52)
[2018-06-23] MEDS: ALBUMIN 25% 25 GM in PREMIX 1 EACH IV SCH ×3 (04:20→21:06)
[2018-06-23 04:34] LABS: ABG Base Excess -5.1 MMOL/L (-2.5-2.5); ABG HCO3 18.5 MMOL/L (20-26); ABG Oxygen Saturation 98.3 % (95-100); ABG PCO2 28.9 MM HG (35-48); ABG PH 7.424 (7.35-7.45); ABG PO2 163.7 MM HG (80-95); ABG TCO2 19.4 MMOL/L (23-27)
[2018-06-23 04:40] LABS: Basophils % 0.1 % (0.0-0.8); Eosinophils # 0.1 10*3/uL (0.0-0.87); Eosinophils % 0.8 % (0.00-10.9); Hematocrit 22.9 VOL% (42.0-52.0); Hemoglobin 7.7 GM/DL (14.0-18.0); Immature Granulocytes % 2.6 %; Immature Granulocytes Absolute 0.45 #; Lymphocytes % 5.5 % (21.2-54.2); Mean Corpuscular HGB Conc 33.6 GM/DL (32-36); Mean Corpuscular Hemoglobin 30 PG (27-34); Mean Corpuscular Volume 90.5 FL (87-102); Mean Platelet Volume 13.4 FL (9.6-12.0); Monocytes # 0.2 10*3/uL (0.11-0.8); Monocytes % 1.1 % (1.7-12.7); Neutrophils # 15.8 10*3/uL (1.4-7.4); Neutrophils % 89.9 % (38.7-73.9); Red Blood Count 2.53 MC/CUMM (3.8-5.5); Red Cell Distribution Width 15.3 % (9.3-17.3); White Blood Count 17.6 T/CUMM (4-12)
[2018-06-23 04:43] LABS: Platelet Count 97 T/CUMM (130-400)
[2018-06-23 04:58] LABS: Albumin 2.7 G/DL (3.4-5.0); Bilirubin,Total 1.2 MG/DL (0.2-1.0); Osmolality,Calculated 323.5 MOS/KG (273-304); Potassium 3.8 MMOL/L (3.5-5.1)
[2018-06-23 05:00] LABS: Prealbumin 14.1 MG/DL (20-40)
[2018-06-23 05:04] LABS: Calcium 5.8 MG/DL (8.5-10.1)
[2018-06-23 05:06] LABS: Hypochromasia 2+; Lymphocytes 7 % (20-55); Platelet Estimate Decreased; Segmented Neutrophils 91 % (50-85); Total Cells Counted 100
[2018-06-23] MEDS ORDERED: CALCIUM GLUCONATE 1,000 MG in SODIUM CHLORIDE 0.9% 100 ML IV ONE (05:31)
[2018-06-23] MEDS: PROPOFOL 1,000 MG/100 ML BOTTLE IV SCH ×3 (07:25→19:40)
[2018-06-23] MEDS: CALCITRIOL 0.5 MCG CAPSULE PER TUBE SCH (08:08)
[2018-06-23] MEDS: CALCIUM (CARBONATE) 500 MG TABLET PER TUBE SCH ×3 (08:08→21:05)
[2018-06-23] MEDS: miSOPROStol 200 MCG TABLET PO SCH ×4 (08:09→21:06)
[2018-06-23] MEDS: CLINDAMYCIN INJ 600 MG in PREMIX 1 EACH IV SCH ×2 (08:09→16:02)
[2018-06-23] MEDS: ASCORBIC ACID 500 MG TABLET PO SCH ×2 (08:09→21:05)
[2018-06-23] MEDS: POTASSIUM CHLORIDE 20 MEQ TABLET PO SCH (08:09)
[2018-06-23] MEDS: HYDROCORTISONE 100 MG VIAL IV SCH ×2 (08:09→21:05)
[2018-06-23] MEDS: FAMOTIDINE 20 MG TABLET PO SCH ×2 (08:09→21:04)
[2018-06-23] MEDS: SODIUM HYPOCHLORITE 0.25% IRRIG 473 ML BOTTLE TOP SCH (08:10)
[2018-06-23] MEDS: AMIODARONE INJ 450 MG in DEXTROSE 5% 241 ML IV SCH (11:00)
[2018-06-23] MEDS: MORPHINE 4 MG/1 ML VIAL IV PRN ×3 (11:25→23:48)
[2018-06-23] MEDS: AMIODARONE 200 MG TABLET PO SCH ×2 (12:46→21:04)
[2018-06-24] MEDS: CLINDAMYCIN INJ 600 MG in PREMIX 1 EACH IV SCH ×3 (01:13→16:00)
[2018-06-24] MEDS: PROPOFOL 1,000 MG/100 ML BOTTLE IV SCH ×4 (01:50→18:40)
[2018-06-24] MEDS: ALBUMIN 25% 25 GM in PREMIX 1 EACH IV SCH ×3 (05:07→20:48)
[2018-06-24 05:38] LABS: ABG Base Excess -8.2 MMOL/L (-2.5-2.5); ABG HCO3 17.7 MMOL/L (20-26); ABG Oxygen Saturation 98.9 % (95-100); ABG TCO2 15.7 MMOL/L (23-27)
[2018-06-24] MEDS: INSULIN REGULAR 100 UNIT/ML SUBCUT SCH ×3 (05:44→17:58)
[2018-06-24 06:18] LABS: Albumin 2.8 G/DL (3.4-5.0); Bilirubin,Total 1.2 MG/DL (0.2-1.0); Calcium 6.4 MG/DL (8.5-10.1); Osmolality,Calculated 323.8 MOS/KG (273-304); Potassium 4.3 MMOL/L (3.5-5.1); Total Protein 5.6 G/DL (6.4-8.3)
[2018-06-24 07:07] LABS: Basophils % 0.1 % (0.0-0.8); Eosinophils % 0.2 % (0.00-10.9); Hemoglobin 7.1 GM/DL (14.0-18.0); Immature Granulocytes % 2.7 %; Immature Granulocytes Absolute 0.45 #; Lymphocytes # 0.5 10*3/uL (1.4-4.0); Lymphocytes % 2.8 % (21.2-54.2); Mean Corpuscular HGB Conc 33.8 GM/DL (32-36); Mean Corpuscular Hemoglobin 31 PG (27-34); Mean Corpuscular Volume 91.7 FL (87-102); Mean Platelet Volume 13.2 FL (9.6-12.0); Monocytes # 0.2 10*3/uL (0.11-0.8); Monocytes % 1.1 % (1.7-12.7); Neutrophils # 15.8 10*3/uL (1.4-7.4); Neutrophils % 93.1 % (38.7-73.9); Platelet Count 127 T/CUMM (130-400); Red Blood Count 2.29 MC/CUMM (3.8-5.5); Red Cell Distribution Width 15.7 % (9.3-17.3)
[2018-06-24 07:30] LABS: Band Neutrophils 6 % (0-10); Lymphocytes 1 % (20-55); Myelocytes 1 %; Segmented Neutrophils 92 % (50-85); Total Cells Counted 100
[2018-06-24 07:31] LABS: Hypochromasia 1+; Microcytosis 1+; Ovalocytes Slight
[2018-06-24] MEDS: SODIUM HYPOCHLORITE 0.25% IRRIG 473 ML BOTTLE TOP SCH (09:00)
[2018-06-24] MEDS: POTASSIUM CHLORIDE 20 MEQ TABLET PO SCH (09:00)
[2018-06-24] MEDS: miSOPROStol 200 MCG TABLET PO SCH ×4 (09:00→20:47)
[2018-06-24] MEDS: CALCITRIOL 0.5 MCG CAPSULE PER TUBE SCH (09:08)
[2018-06-24] MEDS: CALCIUM (CARBONATE) 500 MG TABLET PER TUBE SCH ×3 (09:08→20:48)
[2018-06-24] MEDS: FAMOTIDINE 20 MG TABLET PO SCH ×2 (09:08→20:47)
[2018-06-24] MEDS: ASCORBIC ACID 500 MG TABLET PO SCH ×2 (09:08→20:47)
[2018-06-24] MEDS: HYDROCORTISONE 100 MG VIAL IV SCH ×2 (09:08→16:00)
[2018-06-24] MEDS: AMIODARONE 200 MG TABLET PO SCH ×2 (09:08→20:47)
[2018-06-24] MEDS ORDERED: CALCIUM GLUCONATE 1,000 MG in SODIUM CHLORIDE 0.9% 100 ML IV ONE (09:30)
[2018-06-24] MEDS: MORPHINE 4 MG/1 ML VIAL IV PRN ×4 (10:00→22:37)
[2018-06-24 14:53] LABS: Myeloperoxidase Antibody < 0.2 U
[2018-06-24] MEDS: DEXTROSE 50% 25 GM/50 ML SYRINGE IV PRN (23:23)
[2018-06-25] MEDS: PROPOFOL 1,000 MG/100 ML BOTTLE IV SCH ×6 (00:10→21:08)
[2018-06-25] MEDS: INSULIN REGULAR 100 UNIT/ML SUBCUT SCH ×4 (00:11→18:02)
[2018-06-25] MEDS: HYDROCORTISONE 100 MG VIAL IV SCH ×3 (00:23→16:25)
[2018-06-25] MEDS: CLINDAMYCIN INJ 600 MG in PREMIX 1 EACH IV SCH ×3 (00:24→16:24)
[2018-06-25] MEDS: PANTOPRAZOLE 40 MG VIAL IV SCH (00:24)
[2018-06-25] MEDS: ALBUMIN 25% 25 GM in PREMIX 1 EACH IV SCH ×3 (04:35→20:34)
[2018-06-25 05:45] LABS: ABG Base Excess -5.8 MMOL/L (-2.5-2.5); ABG HCO3 19.6 MMOL/L (20-26); ABG Oxygen Saturation 98.3 % (95-100); ABG PCO2 31.1 MM HG (35-48); ABG PH 7.383 (7.35-7.45); ABG TCO2 17.3 MMOL/L (23-27)
[2018-06-25 06:02] LABS: Basophils % 0.1 % (0.0-0.8); Hematocrit 22.7 VOL% (42.0-52.0); Hemoglobin 7.5 GM/DL (14.0-18.0); Immature Granulocytes % 1.6 %; Immature Granulocytes Absolute 0.19 #; Lymphocytes # 0.2 10*3/uL (1.4-4.0); Mean Corpuscular Hemoglobin 29 PG (27-34); Mean Corpuscular Volume 87.6 FL (87-102); Mean Platelet Volume 12.6 FL (9.6-12.0); Monocytes # 0.2 10*3/uL (0.11-0.8); Monocytes % 1.3 % (1.7-12.7); Neutrophils # 11.3 10*3/uL (1.4-7.4); Platelet Count 121 T/CUMM (130-400); Red Blood Count 2.59 MC/CUMM (3.8-5.5); Red Cell Distribution Width 16.1 % (9.3-17.3); White Blood Count 11.9 T/CUMM (4-12)
[2018-06-25 06:26] LABS: Calcium 6.7 MG/DL (8.5-10.1); Osmolality,Calculated 314.7 MOS/KG (273-304); Potassium 4.2 MMOL/L (3.5-5.1)
[2018-06-25 06:31] LABS: Troponin I 0.06 NG/ML (0.00-0.045)
[2018-06-25 06:42] LABS: Lymphocytes 3 % (20-55); Segmented Neutrophils 97 % (50-85); Total Cells Counted 100
[2018-06-25 06:43] LABS: Platelet Estimate Decreased; Polychromasia Few
[2018-06-25] MEDS: FAMOTIDINE 20 MG TABLET PO SCH ×2 (09:22→20:32)
[2018-06-25] MEDS: miSOPROStol 200 MCG TABLET PO SCH ×4 (09:23→20:32)
[2018-06-25] MEDS: CALCITRIOL 0.5 MCG CAPSULE PER TUBE SCH (09:23)
[2018-06-25] MEDS: ASCORBIC ACID 500 MG TABLET PO SCH ×2 (09:23→20:32)
[2018-06-25] MEDS: AMIODARONE 200 MG TABLET PO SCH ×2 (09:23→20:33)
[2018-06-25] MEDS: POTASSIUM CHLORIDE 20 MEQ TABLET PO SCH (09:23)
[2018-06-25] MEDS: CALCIUM (CARBONATE) 500 MG TABLET PER TUBE SCH ×3 (09:24→20:32)
[2018-06-25] MEDS: MORPHINE 4 MG/1 ML VIAL IV PRN ×2 (09:51→20:41)
[2018-06-25] MEDS: SODIUM HYPOCHLORITE 0.25% IRRIG 473 ML BOTTLE TOP SCH (11:28)
[2018-06-25] MEDS: DEXTROSE 50% 25 GM/50 ML SYRINGE IV PRN (18:07)
[2018-06-25] MEDS: traZODone 50 MG TABLET PO PRN (20:32)
[2018-06-26] MEDS: METOCLOPRAMIDE 10 MG/2 ML VIAL IV SCH ×4 (00:10→18:17)
[2018-06-26] MEDS: CLINDAMYCIN INJ 600 MG in PREMIX 1 EACH IV SCH ×3 (00:10→18:21)
[2018-06-26] MEDS: PANTOPRAZOLE 40 MG VIAL IV SCH (00:10)
[2018-06-26] MEDS: HYDROCORTISONE 100 MG VIAL IV SCH ×3 (00:10→18:17)
[2018-06-26] MEDS: INSULIN REGULAR 100 UNIT/ML SUBCUT SCH ×4 (00:33→17:50)
[2018-06-26] MEDS: PROPOFOL 1,000 MG/100 ML BOTTLE IV SCH ×3 (00:47→12:10)
[2018-06-26 05:15] LABS: ABG Base Excess -8.4 MMOL/L (-2.5-2.5); ABG HCO3 17.6 MMOL/L (20-26); ABG Oxygen Saturation 97.9 % (95-100); ABG PCO2 30.3 MM HG (35-48); ABG PH 7.344 (7.35-7.45); ABG TCO2 15.5 MMOL/L (23-27)
[2018-06-26 05:26] LABS: Basophils % 0.1 % (0.0-0.8); Eosinophils % 0.2 % (0.00-10.9); Hematocrit 25.3 VOL% (42.0-52.0); Hemoglobin 8.6 GM/DL (14.0-18.0); Immature Granulocytes % 1.2 %; Immature Granulocytes Absolute 0.15 #; Lymphocytes # 0.3 10*3/uL (1.4-4.0); Lymphocytes % 2.3 % (21.2-54.2); Mean Corpuscular Hemoglobin 30 PG (27-34); Mean Corpuscular Volume 88.8 FL (87-102); Mean Platelet Volume 12.2 FL (9.6-12.0); Monocytes # 0.2 10*3/uL (0.11-0.8); Monocytes % 1.6 % (1.7-12.7); Neutrophils # 11.8 10*3/uL (1.4-7.4); Neutrophils % 94.6 % (38.7-73.9); Platelet Count 142 T/CUMM (130-400); Red Blood Count 2.85 MC/CUMM (3.8-5.5); Red Cell Distribution Width 16.3 % (9.3-17.3); White Blood Count 12.5 T/CUMM (4-12)
[2018-06-26] MEDS: ALBUMIN 25% 25 GM in PREMIX 1 EACH IV SCH ×3 (05:40→21:49)
[2018-06-26 05:50] LABS: Calcium 6.8 MG/DL (8.5-10.1); Potassium 4.4 MMOL/L (3.5-5.1); Prealbumin 13.9 MG/DL (20-40)
[2018-06-26 06:21] LABS: Band Neutrophils 1 % (0-10); Eosinophils 1 % (0-10); Hypochromasia 1+; Lymphocytes 2 % (20-55); Platelet Estimate Adequate; Segmented Neutrophils 94 % (50-85); Total Cells Counted 100
[2018-06-26 06:22] LABS: Microcytosis Slight; Ovalocytes Slight
[2018-06-26] MEDS: miSOPROStol 200 MCG TABLET PO SCH ×4 (09:01→22:34)
[2018-06-26] MEDS: CALCIUM (CARBONATE) 500 MG TABLET PER TUBE SCH ×3 (09:01→22:34)
[2018-06-26] MEDS: AMIODARONE 200 MG TABLET PO SCH ×2 (10:49→22:34)
[2018-06-26] MEDS: SODIUM HYPOCHLORITE 0.25% IRRIG 473 ML BOTTLE TOP SCH (10:49)
[2018-06-26] MEDS: FAMOTIDINE 20 MG TABLET PO SCH ×2 (10:50→22:35)
[2018-06-26] MEDS ORDERED: BENZOIN COMPOUND TINCTURE 58 ML BOTTLE TOP ONE (11:07)
[2018-06-26] MEDS ORDERED: SEVOFLURANE 1 UNIT/15 MINUTE INH ONE (12:17)
[2018-06-26] MEDS ORDERED: MIDAZOLAM 2 MG/2 ML VIAL ONE (12:18)
[2018-06-26] MEDS ORDERED: ROCURONIUM 100 MG/10 ML VIAL IV ONE (12:18)
[2018-06-26] MEDS: POTASSIUM CHLORIDE 20 MEQ TABLET PO SCH (14:00)
[2018-06-26] MEDS: ASCORBIC ACID 500 MG TABLET PO SCH ×2 (14:01→22:35)
[2018-06-26] MEDS: CALCITRIOL 0.5 MCG CAPSULE PER TUBE SCH (14:01)
[2018-06-26] MEDS: MORPHINE 4 MG/1 ML VIAL IV PRN ×2 (14:22→20:29)
[2018-06-26] MEDS ORDERED: SKIN HEALING OINT (AQUAPHOR) 50 GM TUBE TOP PRN (15:23)
[2018-06-26] MEDS ORDERED: AMIODARONE INJ 150 MG in DEXTROSE 5% 100 ML IV ONE (16:33)
[2018-06-26] MEDS ORDERED: AMIODARONE 150 MG/3 ML VIAL ONE (16:36)
[2018-06-26] MEDS: DEXTROSE 50% 25 GM/50 ML SYRINGE IV PRN (17:45)
[2018-06-26] MEDS ORDERED: AMIODARONE INJ 450 MG in DEXTROSE 5% 241 ML IV SCH (18:00)
[2018-06-26] MEDS ORDERED: AMIODARONE 450 MG/9 ML VIAL IV ONE (18:07)
[2018-06-26] MEDS ORDERED: CALCIUM GLUCONATE 2,000 MG in SODIUM CHLORIDE 0.9% 100 ML IV ONE (18:57)
[2018-06-26] MEDS ORDERED: SODIUM CHLORIDE 0.9% 250 ML IV ONE (19:54)
[2018-06-26] MEDS ORDERED: DIGOXIN 0.5 MG/2 ML AMP IV ONE ×2 (19:55→21:00)
[2018-06-27] MEDS: METOCLOPRAMIDE 10 MG/2 ML VIAL IV SCH ×4 (00:31→17:15)
[2018-06-27] MEDS: INSULIN REGULAR 100 UNIT/ML SUBCUT SCH ×4 (00:31→17:15)
[2018-06-27] MEDS: PANTOPRAZOLE 40 MG VIAL IV SCH (00:31)
[2018-06-27] MEDS: HYDROCORTISONE 100 MG VIAL IV SCH ×3 (01:52→17:12)
[2018-06-27] MEDS: CLINDAMYCIN INJ 600 MG in PREMIX 1 EACH IV SCH ×3 (01:52→17:14)
[2018-06-27] MEDS: MORPHINE 4 MG/1 ML VIAL IV PRN ×5 (01:59→18:29)
[2018-06-27] MEDS: AMIODARONE INJ 450 MG in DEXTROSE 5% 241 ML IV SCH ×2 (02:48→18:41)
[2018-06-27 03:33] LABS: ABG Base Excess -6.5 MMOL/L (-2.5-2.5); ABG HCO3 18.9 MMOL/L (20-26); ABG Oxygen Saturation 91.9 % (95-100); ABG PCO2 32.4 MM HG (35-48); ABG PH 7.359 (7.35-7.45); ABG PO2 68.9 MM HG (80-95); ABG TCO2 17.3 MMOL/L (23-27)
[2018-06-27 03:57] LABS: Basophils % 0.2 % (0.0-0.8); Eosinophils % 0.1 % (0.00-10.9); Hematocrit 21.1 VOL% (42.0-52.0); Hemoglobin 7.1 GM/DL (14.0-18.0); Immature Granulocytes % 1.2 %; Immature Granulocytes Absolute 0.15 #; Lymphocytes # 0.3 10*3/uL (1.4-4.0); Lymphocytes % 2.5 % (21.2-54.2); Mean Corpuscular HGB Conc 33.6 GM/DL (32-36); Mean Corpuscular Hemoglobin 30 PG (27-34); Mean Corpuscular Volume 89.4 FL (87-102); Mean Platelet Volume 11.7 FL (9.6-12.0); Monocytes # 0.3 10*3/uL (0.11-0.8); Platelet Count 129 T/CUMM (130-400); Red Blood Count 2.36 MC/CUMM (3.8-5.5); Red Cell Distribution Width 16.4 % (9.3-17.3); White Blood Count 12.8 T/CUMM (4-12)
[2018-06-27 04:15] LABS: Calcium 7.1 MG/DL (8.5-10.1); Osmolality,Calculated 305.8 MOS/KG (273-304); Potassium 4.3 MMOL/L (3.5-5.1)
[2018-06-27] MEDS: ALBUMIN 25% 25 GM in PREMIX 1 EACH IV SCH ×3 (05:46→21:23)
[2018-06-27 06:45] LABS: Anisocytosis 1+; Band Neutrophils 4 % (0-10); Hypochromasia 2+; Lymphocytes 2 % (20-55); Platelet Estimate Decreased; Polychromasia Few; Segmented Neutrophils 93 % (50-85); Total Cells Counted 100
[2018-06-27 06:46] LABS: Macrocytosis 1+
[2018-06-27] MEDS: miSOPROStol 200 MCG TABLET PO SCH ×4 (08:00→21:23)
[2018-06-27] MEDS: POTASSIUM CHLORIDE 20 MEQ TABLET PO SCH (09:00)
[2018-06-27] MEDS: AMIODARONE 200 MG TABLET PO SCH ×2 (09:00→21:23)
[2018-06-27] MEDS: CALCIUM (CARBONATE) 500 MG TABLET PER TUBE SCH ×3 (09:00→21:23)
[2018-06-27] MEDS ORDERED: CALCIUM GLUCONATE 2,000 MG in SODIUM CHLORIDE 0.9% 100 ML IV ONE (10:00)
[2018-06-27] MEDS: SODIUM HYPOCHLORITE 0.25% IRRIG 473 ML BOTTLE TOP SCH (12:15)
[2018-06-27] MEDS: ALBUTEROL/IPRATROPIUM 3 ML NEB RESP TX SCH ×2 (12:50→19:34)
[2018-06-27] MEDS: CALCITRIOL 0.5 MCG CAPSULE PER TUBE SCH (14:17)
[2018-06-27] MEDS: FAMOTIDINE 20 MG TABLET PO SCH ×2 (14:17→21:23)
[2018-06-27] MEDS: ASCORBIC ACID 500 MG TABLET PO SCH ×2 (14:17→21:23)
[2018-06-27 16:32] LABS: ABG Base Excess -7.7 MMOL/L (-2.5-2.5); ABG HCO3 16.7 MMOL/L (20-26); ABG Oxygen Saturation 89.6 % (95-100); ABG PCO2 28.8 MM HG (35-48); ABG PO2 66.6 MM HG (80-95); ABG TCO2 17.5 MMOL/L (23-27); Allen Test Positive; Pt O2 Delivery Device Venturi Mask
[2018-06-27] MEDS ORDERED: GLUCAGON 1 MG VIAL IM PRN (17:07)
[2018-06-27] MEDS ORDERED: DEXTROSE 50% 25 GM/50 ML VIAL IV PRN (17:07)
[2018-06-27] MEDS: ACYCLOVIR INJ 250 MG in SODIUM CHLORIDE 0.9% 100 ML IV SCH (18:29)
[2018-06-27] MEDS ORDERED: MORPHINE 4 MG/1 ML VIAL IV ONE (19:55)
[2018-06-27 20:23] LABS: Hemoglobin 5.9 GM/DL (14.0-18.0)
[2018-06-28] MEDS: MORPHINE 4 MG/1 ML VIAL IV PRN ×3 (00:11→20:17)
[2018-06-28] MEDS: INSULIN REGULAR 100 UNIT/ML SUBCUT SCH ×5 (00:11→23:14)
[2018-06-28] MEDS: METOCLOPRAMIDE 10 MG/2 ML VIAL IV SCH ×5 (00:14→23:15)
[2018-06-28] MEDS: PANTOPRAZOLE 40 MG VIAL IV SCH ×2 (00:17→23:14)
[2018-06-28] MEDS: HYDROCORTISONE 100 MG VIAL IV SCH ×3 (00:38→16:05)
[2018-06-28] MEDS: CLINDAMYCIN INJ 600 MG in PREMIX 1 EACH IV SCH ×3 (00:40→16:05)
[2018-06-28] MEDS ORDERED: SILVER NITRATE STICK 1 EACH TOP ONE ×2 (01:10→08:10)
[2018-06-28] MEDS ORDERED: MIDAZOLAM 10 MG/2 ML VIAL ONE (01:14)
[2018-06-28] MEDS ORDERED: ETOMIDATE 20 MG/10 ML VIAL IV ONE ×2 (01:14→01:20)
[2018-06-28] MEDS ORDERED: VECURONIUM 10 MG VIAL IV ONE (01:14)
[2018-06-28] MEDS ORDERED: PROPOFOL 1,000 MG/100 ML BOTTLE IV ONE (01:18)
[2018-06-28] MEDS ORDERED: SILVER NITRATE STICK 1 EACH TOP PRN (01:28)
[2018-06-28] MEDS ORDERED: MIDAZOLAM 2 MG/2 ML VIAL IV ONE (01:29)
[2018-06-28] MEDS: PROPOFOL 1,000 MG/100 ML BOTTLE IV SCH ×2 (01:41→11:47)
[2018-06-28] MEDS: PHENYLEPHRINE INJ 160 MG in SODIUM CHLORIDE 0.9% 234 ML IV PRN (01:45)
[2018-06-28] MEDS: ALBUTEROL/IPRATROPIUM 3 ML NEB RESP TX SCH ×4 (02:15→19:29)
[2018-06-28 02:17] LABS: ABG Base Excess -9.4 MMOL/L (-2.5-2.5); ABG HCO3 16.7 MMOL/L (20-26); ABG PCO2 49.4 MM HG (35-48); ABG TCO2 18.1 MMOL/L (23-27)
[2018-06-28 02:27] LABS: ABG PH 7.177 (7.35-7.45)
[2018-06-28] MEDS ORDERED: SODIUM BICARBONATE 50 MEQ/50 ML SYRINGE IV ONE ×3 (02:29→02:36)
[2018-06-28] MEDS: ALBUMIN 25% 25 GM in PREMIX 1 EACH IV SCH ×3 (04:57→20:16)
[2018-06-28] MEDS: ACYCLOVIR INJ 250 MG in SODIUM CHLORIDE 0.9% 100 ML IV SCH ×2 (06:10→17:06)
[2018-06-28 06:33] LABS: ABG Base Excess -7.5 MMOL/L (-2.5-2.5); ABG Oxygen Saturation 69.8 % (95-100); ABG PCO2 53.5 MM HG (35-48); ABG PO2 46.7 MM HG (80-95); Allen Test Positive; Pt O2 Delivery Device Ventilator
[2018-06-28 06:38] LABS: Calcium 7.4 MG/DL (8.5-10.1); Potassium 5.4 MMOL/L (3.5-5.1)
[2018-06-28 07:37] LABS: Basophils % 0.1 % (0.0-0.8); Hematocrit 19.2 VOL% (42.0-52.0); Immature Granulocytes % 0.8 %; Immature Granulocytes Absolute 0.13 #; Lymphocytes # 0.3 10*3/uL (1.4-4.0); Lymphocytes % 1.9 % (21.2-54.2); Mean Corpuscular HGB Conc 31.8 GM/DL (32-36); Mean Corpuscular Hemoglobin 30 PG (27-34); Mean Corpuscular Volume 92.8 FL (87-102); Mean Platelet Volume 12.3 FL (9.6-12.0); Monocytes # 0.4 10*3/uL (0.11-0.8); Monocytes % 2.2 % (1.7-12.7); Neutrophils # 15.7 10*3/uL (1.4-7.4); Platelet Count 114 T/CUMM (130-400); Red Blood Count 2.07 MC/CUMM (3.8-5.5); Red Cell Distribution Width 16.5 % (9.3-17.3); White Blood Count 16.5 T/CUMM (4-12)
[2018-06-28 07:46] LABS: Hemoglobin 6.1 GM/DL (14.0-18.0)
[2018-06-28 09:15] LABS: Anisocytosis 1+; Band Neutrophils 28 % (0-10); Lymphocytes 1 % (20-55); Platelet Estimate Adequate; Polychromasia Slight; Segmented Neutrophils 70 % (50-85); Total Cells Counted 100
[2018-06-28 09:16] LABS: Giant Platelets Few
[2018-06-28] MEDS: FAMOTIDINE 20 MG TABLET PO SCH ×2 (09:52→20:15)
[2018-06-28] MEDS: miSOPROStol 200 MCG TABLET PO SCH ×4 (09:52→20:15)
[2018-06-28] MEDS: CALCIUM (CARBONATE) 500 MG TABLET PER TUBE SCH ×3 (09:53→20:15)
[2018-06-28] MEDS: AMIODARONE 200 MG TABLET PO SCH ×2 (09:53→20:16)
[2018-06-28] MEDS: CALCITRIOL 0.5 MCG CAPSULE PER TUBE SCH (09:54)
[2018-06-28] MEDS: ASCORBIC ACID 500 MG TABLET PO SCH ×2 (10:00→20:16)
[2018-06-28] MEDS: POTASSIUM CHLORIDE 20 MEQ TABLET PO SCH (10:18)
[2018-06-28] MEDS: SODIUM HYPOCHLORITE 0.25% IRRIG 473 ML BOTTLE TOP SCH (10:18)
[2018-06-28 10:45] LABS: ABG HCO3 24.5 MMOL/L (20-26); ABG Oxygen Saturation 91.6 % (95-100); ABG PCO2 56.9 MM HG (35-48); ABG PH 7.252 (7.35-7.45); ABG PO2 74.3 MM HG (80-95); ABG TCO2 26.3 MMOL/L (23-27); Allen Test Positive; Pt O2 Delivery Device Ventilator
[2018-06-28] MEDS: AMIODARONE INJ 450 MG in DEXTROSE 5% 241 ML IV SCH (11:15)
[2018-06-28 17:30] LABS: Hematocrit 24.9 VOL% (42.0-52.0)
[2018-06-29] MEDS: ALBUTEROL/IPRATROPIUM 3 ML NEB RESP TX SCH ×4 (00:26→19:01)
[2018-06-29] MEDS: HYDROCORTISONE 100 MG VIAL IV SCH ×3 (00:27→16:07)
[2018-06-29] MEDS: CLINDAMYCIN INJ 600 MG in PREMIX 1 EACH IV SCH ×2 (00:29→08:53)
[2018-06-29] MEDS: MORPHINE 4 MG/1 ML VIAL IV PRN ×5 (02:15→21:01)
[2018-06-29 03:45] LABS: ABG HCO3 20.2 MMOL/L (20-26); ABG Oxygen Saturation 96.5 % (95-100); ABG PCO2 43.7 MM HG (35-48); ABG PH 7.294 (7.35-7.45); ABG TCO2 20.1 MMOL/L (23-27); Allen Test Positive; Pt O2 Delivery Device Ventilator
[2018-06-29] MEDS: PROPOFOL 1,000 MG/100 ML BOTTLE IV SCH ×2 (04:42→20:18)
[2018-06-29] MEDS: METOCLOPRAMIDE 10 MG/2 ML VIAL IV SCH ×4 (05:41→23:44)
[2018-06-29] MEDS: ALBUMIN 25% 25 GM in PREMIX 1 EACH IV SCH ×3 (05:41→20:38)
[2018-06-29] MEDS: ACYCLOVIR INJ 250 MG in SODIUM CHLORIDE 0.9% 100 ML IV SCH ×2 (05:41→18:20)
[2018-06-29 06:00] LABS: Eosinophils % 0.3 % (0.00-10.9); Hematocrit 21.2 VOL% (42.0-52.0); Hemoglobin 6.9 GM/DL (14.0-18.0); Immature Granulocytes % 1.3 %; Immature Granulocytes Absolute 0.09 #; Lymphocytes # 0.3 10*3/uL (1.4-4.0); Lymphocytes % 4.1 % (21.2-54.2); Mean Corpuscular HGB Conc 32.5 GM/DL (32-36); Mean Corpuscular Hemoglobin 29 PG (27-34); Mean Platelet Volume 11.5 FL (9.6-12.0); Monocytes # 0.1 10*3/uL (0.11-0.8); Monocytes % 1.8 % (1.7-12.7); Neutrophils # 6.5 10*3/uL (1.4-7.4); Neutrophils % 92.5 % (38.7-73.9); Red Blood Count 2.41 MC/CUMM (3.8-5.5); Red Cell Distribution Width 18.6 % (9.3-17.3)
[2018-06-29 06:02] LABS: Platelet Count 77 T/CUMM (130-400)
[2018-06-29 06:16] LABS: Calcium 7.3 MG/DL (8.5-10.1); Osmolality,Calculated 303.1 MOS/KG (273-304); Potassium 5.2 MMOL/L (3.5-5.1)
[2018-06-29 06:20] LABS: Troponin I 1.61 NG/ML (0.00-0.045)
[2018-06-29 06:21] LABS: Lactic Acid 1.1 MMOL/L (0.4-2.0)
[2018-06-29 06:40] LABS: Anisocytosis 1+; Band Neutrophils 32 % (0-10); Eosinophils 1 % (0-10); Lymphocytes 1 % (20-55); Platelet Estimate Decreased; Segmented Neutrophils 65 % (50-85); Total Cells Counted 100
[2018-06-29 06:41] LABS: Polychromasia Slight
[2018-06-29] MEDS: INSULIN REGULAR 100 UNIT/ML SUBCUT SCH ×4 (06:54→23:45)
[2018-06-29] MEDS ORDERED: SODIUM CHLORIDE 0.9% 1,000 ML IV PRN (08:51)
[2018-06-29] MEDS: CALCITRIOL 0.5 MCG CAPSULE PER TUBE SCH (08:52)
[2018-06-29] MEDS: CALCIUM (CARBONATE) 500 MG TABLET PER TUBE SCH ×3 (08:52→20:37)
[2018-06-29] MEDS: FAMOTIDINE 20 MG TABLET PO SCH ×2 (08:52→20:38)
[2018-06-29] MEDS: ASCORBIC ACID 500 MG TABLET PO SCH ×2 (08:53→20:38)
[2018-06-29] MEDS: miSOPROStol 200 MCG TABLET PO SCH ×2 (08:53→08:55)
[2018-06-29] MEDS: AMIODARONE 200 MG TABLET PO SCH ×2 (08:56→20:38)
[2018-06-29] MEDS: SODIUM HYPOCHLORITE 0.25% IRRIG 473 ML BOTTLE TOP SCH (08:57)
[2018-06-29] MEDS: MEROPENEM 1,000 MG in SODIUM CHLORIDE 0.9% 100 ML IV SCH ×2 (11:02→22:09)
[2018-06-29] MEDS: PANTOPRAZOLE 40 MG VIAL IV SCH (23:46)
[2018-06-30] MEDS: HYDROCORTISONE 100 MG VIAL IV SCH ×3 (00:03→17:04)
[2018-06-30] MEDS: ALBUTEROL/IPRATROPIUM 3 ML NEB RESP TX SCH ×4 (00:50→19:41)
[2018-06-30] MEDS: MORPHINE 4 MG/1 ML VIAL IV PRN ×2 (01:17→04:04)
[2018-06-30] MEDS: PROPOFOL 1,000 MG/100 ML BOTTLE IV SCH ×3 (02:24→23:20)
[2018-06-30 03:59] LABS: Allen Test Positive; Pt O2 Delivery Device Ventilator
[2018-06-30 04:00] LABS: ABG Base Excess -8.1 MMOL/L (-2.5-2.5); ABG HCO3 17.8 MMOL/L (20-26); ABG Oxygen Saturation 97.3 % (95-100); ABG PCO2 53.3 MM HG (35-48); ABG TCO2 19.4 MMOL/L (23-27)
[2018-06-30 04:04] LABS: ABG PH 7.182 (7.35-7.45)
[2018-06-30] MEDS: ALBUMIN 25% 25 GM in PREMIX 1 EACH IV SCH ×3 (06:04→20:42)
[2018-06-30] MEDS: METOCLOPRAMIDE 10 MG/2 ML VIAL IV SCH ×3 (06:04→17:06)
[2018-06-30] MEDS: INSULIN REGULAR 100 UNIT/ML SUBCUT SCH ×3 (06:05→18:22)
[2018-06-30] MEDS: ACYCLOVIR INJ 250 MG in SODIUM CHLORIDE 0.9% 100 ML IV SCH ×2 (06:05→18:13)
[2018-06-30 07:23] LABS: Hematocrit 19.5 VOL% (42.0-52.0); Lymphocytes # 0.2 10*3/uL (1.4-4.0); Lymphocytes % 22.9 % (21.2-54.2); Mean Corpuscular HGB Conc 31.3 GM/DL (32-36); Mean Corpuscular Hemoglobin 28 PG (27-34); Mean Corpuscular Volume 89.9 FL (87-102); Monocytes # 0.1 10*3/uL (0.11-0.8); Monocytes % 11.4 % (1.7-12.7); Neutrophils # 0.5 10*3/uL (1.4-7.4); Neutrophils % 65.7 % (38.7-73.9); Platelet Count 77 T/CUMM (130-400); Red Blood Count 2.17 MC/CUMM (3.8-5.5); Red Cell Distribution Width 18.9 % (9.3-17.3)
[2018-06-30 07:26] LABS: Hemoglobin 6.1 GM/DL (14.0-18.0); White Blood Count 0.7 T/CUMM (4-12)
[2018-06-30] MEDS ORDERED: SODIUM CHLORIDE 0.9% 1,000 ML IV PRN (07:33)
[2018-06-30] MEDS: CALCITRIOL 0.5 MCG CAPSULE PER TUBE SCH (08:47)
[2018-06-30] MEDS: AMIODARONE 200 MG TABLET PO SCH ×2 (08:47→20:42)
[2018-06-30] MEDS: FAMOTIDINE 20 MG TABLET PO SCH (08:47)
[2018-06-30] MEDS: ASCORBIC ACID 500 MG TABLET PO SCH ×2 (08:47→20:42)
[2018-06-30] MEDS: CALCIUM (CARBONATE) 500 MG TABLET PER TUBE SCH ×2 (08:48→15:40)
[2018-06-30] MEDS: SODIUM HYPOCHLORITE 0.25% IRRIG 473 ML BOTTLE TOP SCH (09:19)
[2018-06-30] MEDS: MEROPENEM 1,000 MG in SODIUM CHLORIDE 0.9% 100 ML IV SCH (09:19)
[2018-06-30] MEDS ORDERED: VANCOMYCIN INJ 750 MG in SODIUM CHLORIDE 0.9% 250 ML IV PRN (10:23)
[2018-06-30 11:17] LABS: INR 1.2; PT Patient Result 12.8 SECS
[2018-06-30] MEDS ORDERED: PIPERACILLIN/TAZOBACTAM 3,375 MG in SODIUM CHLORIDE 0.9% 100 ML IV SCH (12:00)
[2018-06-30] MEDS ORDERED: VANCOMYCIN INJ 2,000 MG in SODIUM CHLORIDE 0.9% 500 ML IV ONE (13:00)
[2018-06-30 13:14] LABS: Hemoglobin 8.1 GM/DL (14.0-18.0); Immature Granulocytes % 12.1 %; Immature Granulocytes Absolute 0.08 #; Lymphocytes # 0.1 10*3/uL (1.4-4.0); Lymphocytes % 21.2 % (21.2-54.2); Mean Corpuscular HGB Conc 32.4 GM/DL (32-36); Mean Corpuscular Hemoglobin 29 PG (27-34); Mean Corpuscular Volume 88.7 FL (87-102); Mean Platelet Volume 11.5 FL (9.6-12.0); Monocytes # 0.1 10*3/uL (0.11-0.8); Monocytes % 12.1 % (1.7-12.7); Neutrophils # 0.4 10*3/uL (1.4-7.4); Neutrophils % 54.6 % (38.7-73.9); Platelet Count 77 T/CUMM (130-400); Red Blood Count 2.82 MC/CUMM (3.8-5.5); Red Cell Distribution Width 17.5 % (9.3-17.3)
[2018-06-30 13:26] LABS: White Blood Count 0.7 T/CUMM (4-12)
[2018-06-30 13:33] LABS: ABG Base Excess -3.6 MMOL/L (-2.5-2.5); ABG HCO3 21.4 MMOL/L (20-26); ABG Oxygen Saturation 99.3 % (95-100); ABG PCO2 42.6 MM HG (35-48); ABG PH 7.326 (7.35-7.45); ABG TCO2 20.4 MMOL/L (23-27); Allen Test Positive; Pt O2 Delivery Device Ventilator
[2018-06-30 13:35] LABS: Band Neutrophils 100 % (0-10); Hypochromasia 2+; Total Cells Counted 100
[2018-06-30 13:36] LABS: Microcytosis 1+; Ovalocytes Few; Polychromasia Few; Schistocytes Slight
[2018-06-30 13:37] LABS: Platelet Estimate Decreased; Tear Drop Cells Slight
[2018-06-30 15:08] LABS: Band Neutrophils 10 % (0-10); Lymphocytes 25 % (20-55); Segmented Neutrophils 55 % (50-85); Total Cells Counted 100
[2018-06-30 15:11] LABS: Polychromasia Slight
[2018-06-30 15:13] LABS: Platelet Estimate Decreased
[2018-06-30 15:15] LABS: Anisocytosis Slight
[2018-06-30 15:16] LABS: Microcytosis Slight
[2018-06-30 15:17] LABS: Hypochromasia 1+
[2018-06-30] MEDS: CALCIUM CARBONATE CHEW 500 MG TABLET PO SCH ×2 (15:48→20:41)
[2018-06-30] MEDS ORDERED: AMIODARONE INJ 450 MG in DEXTROSE 5% 241 ML IV SCH (18:30)
[2018-06-30 20:40] LABS: INR 1.2; PT Patient Result 13.2 SECS; Partial Thromboplastin Time 37.6 SECS (0-40)
[2018-06-30] MEDS ORDERED: AMIODARONE 200 MG TABLET PO SCH (21:00)
[2018-07-01] MEDS: ALBUTEROL/IPRATROPIUM 3 ML NEB RESP TX SCH ×4 (00:52→19:09)
[2018-07-01] MEDS: METOCLOPRAMIDE 10 MG/2 ML VIAL IV SCH ×4 (01:01→17:54)
[2018-07-01] MEDS: INSULIN REGULAR 100 UNIT/ML SUBCUT SCH ×5 (01:03→23:55)
[2018-07-01] MEDS: PANTOPRAZOLE 40 MG VIAL IV SCH (01:03)
[2018-07-01 03:32] LABS: Basophils % 0.5 % (0.0-0.8); Eosinophils # 0.1 10*3/uL (0.0-0.87); Eosinophils % 3.2 % (0.00-10.9); Hematocrit 25.2 VOL% (42.0-52.0); Hemoglobin 8.2 GM/DL (14.0-18.0); Immature Granulocytes % 0.5 %; Immature Granulocytes Absolute 0.01 #; Lymphocytes # 0.3 10*3/uL (1.4-4.0); Lymphocytes % 15.7 % (21.2-54.2); Mean Corpuscular HGB Conc 32.5 GM/DL (32-36); Mean Corpuscular Hemoglobin 29 PG (27-34); Mean Corpuscular Volume 87.8 FL (87-102); Mean Platelet Volume 11.3 FL (9.6-12.0); Monocytes # 0.1 10*3/uL (0.11-0.8); Neutrophils # 1.4 10*3/uL (1.4-7.4); Neutrophils % 73.1 % (38.7-73.9); Platelet Count 78 T/CUMM (130-400); Red Blood Count 2.87 MC/CUMM (3.8-5.5); Red Cell Distribution Width 17.5 % (9.3-17.3); White Blood Count 1.9 T/CUMM (4-12)
[2018-07-01] MEDS: AMIODARONE INJ 450 MG in DEXTROSE 5% 241 ML IV SCH ×3 (04:01→19:31)
[2018-07-01 04:05] LABS: Calcium 7.5 MG/DL (8.5-10.1); Osmolality,Calculated 300.1 MOS/KG (273-304)
[2018-07-01] MEDS: PHENYLEPHRINE INJ 160 MG in SODIUM CHLORIDE 0.9% 234 ML IV PRN (04:07)
[2018-07-01 04:29] LABS: Eosinophils 1 % (0-10); Hypochromasia 1+; Lymphocytes 34 % (20-55); Metamyelocytes 1 %; Microcytosis 1+; Myelocytes 1 %; Platelet Estimate Decreased; Segmented Neutrophils 51 % (50-85); Total Cells Counted 100
[2018-07-01] MEDS: PROPOFOL 1,000 MG/100 ML BOTTLE IV SCH (05:37)
[2018-07-01 05:45] LABS: ABG Base Excess -5.7 MMOL/L (-2.5-2.5); ABG HCO3 19.7 MMOL/L (20-26); ABG PCO2 41.4 MM HG (35-48); ABG PH 7.301 (7.35-7.45); ABG TCO2 18.5 MMOL/L (23-27); Allen Test Positive; Pt O2 Delivery Device Ventilator
[2018-07-01] MEDS: ALBUMIN 25% 25 GM in PREMIX 1 EACH IV SCH ×3 (06:30→20:50)
[2018-07-01] MEDS: MEROPENEM 500 MG in SODIUM CHLORIDE 0.9% 100 ML IV SCH (06:30)
[2018-07-01] MEDS: ACYCLOVIR INJ 250 MG in SODIUM CHLORIDE 0.9% 100 ML IV SCH ×2 (06:37→17:54)
[2018-07-01] MEDS ORDERED: AMIODARONE 200 MG TABLET PO SCH (09:00)
[2018-07-01] MEDS: FAMOTIDINE 20 MG/2 ML VIAL IV SCH (09:33)
[2018-07-01] MEDS: CALCITRIOL 0.5 MCG CAPSULE PER TUBE SCH (09:34)
[2018-07-01] MEDS: ASCORBIC ACID 500 MG TABLET PO SCH ×2 (09:34→20:49)
[2018-07-01] MEDS: HYDROCORTISONE 100 MG VIAL IV SCH (09:34)
[2018-07-01] MEDS: SODIUM HYPOCHLORITE 0.25% IRRIG 473 ML BOTTLE TOP SCH (09:34)
[2018-07-01] MEDS: CALCIUM CARBONATE CHEW 500 MG TABLET PO SCH ×3 (09:34→20:49)
[2018-07-01] MEDS: AMIODARONE 200 MG TABLET PO SCH ×2 (09:34→20:49)
[2018-07-01] MEDS ORDERED: METOPROLOL TARTRATE 5 MG/5 ML VIAL IV ONE (13:09)
[2018-07-01] MEDS ORDERED: METOPROLOL TARTRATE 50 MG TABLET PO SCH (13:09)
[2018-07-01] MEDS: BISACODYL 10 MG SUPP RECTAL SCH (14:58)
[2018-07-01] MEDS: MORPHINE 4 MG/1 ML VIAL IV PRN ×2 (19:26→23:09)
[2018-07-02] MEDS: PANTOPRAZOLE 40 MG VIAL IV SCH
[2018-07-02] MEDS: METOCLOPRAMIDE 10 MG/2 ML VIAL IV SCH ×3 (00:03→11:53)
[2018-07-02] MEDS: ALBUTEROL/IPRATROPIUM 3 ML NEB RESP TX SCH ×3 (00:41→12:35)
[2018-07-02 03:24] LABS: ABG Base Excess -7.4 MMOL/L (-2.5-2.5); ABG HCO3 18.7 MMOL/L (20-26); ABG Oxygen Saturation 98.5 % (95-100); ABG PCO2 39.9 MM HG (35-48); ABG PH 7.288 (7.35-7.45); ABG PO2 194.5 MM HG (80-95); ABG TCO2 19.9 MMOL/L (23-27); Allen Test Positive; Pt O2 Delivery Device Ventilator
[2018-07-02] MEDS: MORPHINE 4 MG/1 ML VIAL IV PRN ×11 (04:09→22:05)
[2018-07-02] MEDS: PROPOFOL 1,000 MG/100 ML BOTTLE IV SCH ×2 (04:26→04:37)
[2018-07-02] MEDS: ALBUMIN 25% 25 GM in PREMIX 1 EACH IV SCH ×2 (04:37→13:15)
[2018-07-02 05:47] LABS: Basophils % 0.6 % (0.0-0.8); Eosinophils # 0.1 10*3/uL (0.0-0.87); Eosinophils % 3.4 % (0.00-10.9); Hematocrit 25.8 VOL% (42.0-52.0); Hemoglobin 8.3 GM/DL (14.0-18.0); Immature Granulocytes % 0.6 %; Immature Granulocytes Absolute 0.02 #; Lymphocytes # 0.5 10*3/uL (1.4-4.0); Lymphocytes % 16.6 % (21.2-54.2); Mean Corpuscular HGB Conc 32.2 GM/DL (32-36); Mean Corpuscular Hemoglobin 28 PG (27-34); Mean Corpuscular Volume 88.4 FL (87-102); Mean Platelet Volume 11.9 FL (9.6-12.0); Monocytes # 0.1 10*3/uL (0.11-0.8); Monocytes % 3.1 % (1.7-12.7); Neutrophils # 2.4 10*3/uL (1.4-7.4); Neutrophils % 75.7 % (38.7-73.9); Platelet Count 70 T/CUMM (130-400); Red Blood Count 2.92 MC/CUMM (3.8-5.5); Red Cell Distribution Width 17.5 % (9.3-17.3); White Blood Count 3.2 T/CUMM (4-12)
[2018-07-02 06:14] LABS: Calcium 7.1 MG/DL (8.5-10.1); Osmolality,Calculated 306.4 MOS/KG (273-304); Potassium 5.3 MMOL/L (3.5-5.1)
[2018-07-02 06:17] LABS: Albumin 3.8 G/DL (3.4-5.0); Bilirubin,Direct 0.89 MG/DL (0.0-0.20); Bilirubin,Total 1.9 MG/DL (0.2-1.0); Total Protein 7.3 G/DL (6.4-8.3)
[2018-07-02 06:26] LABS: Band Neutrophils 2 % (0-10); Eosinophils 4 % (0-10); Hypochromasia 1+; Lymphocytes 24 % (20-55); Microcytosis 1+; Segmented Neutrophils 69 % (50-85); Total Cells Counted 100
[2018-07-02 06:29] LABS: Platelet Estimate Decreased
[2018-07-02] MEDS: ACYCLOVIR INJ 250 MG in SODIUM CHLORIDE 0.9% 100 ML IV SCH (06:31)
[2018-07-02] MEDS: INSULIN REGULAR 100 UNIT/ML SUBCUT SCH ×2 (06:32→13:34)
[2018-07-02] MEDS: MEROPENEM 500 MG in SODIUM CHLORIDE 0.9% 100 ML IV SCH (06:32)
[2018-07-02] MEDS: AMIODARONE INJ 450 MG in DEXTROSE 5% 241 ML IV SCH (07:49)
[2018-07-02] MEDS: CALCITRIOL 0.5 MCG CAPSULE PER TUBE SCH (08:56)
[2018-07-02] MEDS: CALCIUM CARBONATE CHEW 500 MG TABLET PO SCH ×2 (08:56→16:58)
[2018-07-02] MEDS: ASCORBIC ACID 500 MG TABLET PO SCH (08:56)
[2018-07-02] MEDS: AMIODARONE 200 MG TABLET PO SCH (08:57)
[2018-07-02] MEDS: FAMOTIDINE 20 MG/2 ML VIAL IV SCH (08:58)
[2018-07-02] MEDS: HYDROCORTISONE 100 MG VIAL IV SCH (08:58)
[2018-07-02] MEDS: SODIUM HYPOCHLORITE 0.25% IRRIG 473 ML BOTTLE TOP SCH (08:58)
[2018-07-02] MEDS: BISACODYL 10 MG SUPP RECTAL SCH (08:59)
[2018-07-02] MEDS ORDERED: metroNIDAZOLE INJ 500 MG in PREMIX 1 EACH IV SCH (09:30)
[2018-07-02] MEDS ORDERED: GENTAMICIN INJ 100 MG in PREMIX 1 EACH IV PRN (09:56)
[2018-07-02] MEDS ORDERED: fentaNYL 12 MCG/HR PATCH TRANSDERM SCH (10:00)
[2018-07-02] MEDS ORDERED: HEPARIN 10,000 UNIT/10 ML VIAL IV SCH (10:00)
[2018-07-02] MEDS ORDERED: GENTAMICIN INJ 240 MG in SODIUM CHLORIDE 0.9% 100 ML IV ONE (12:00)
[2018-07-02] MEDS ORDERED: EPOETIN ALFA 10,000 UNIT/1 ML VIAL IV ONE (12:00)
[2018-07-02] MEDS ORDERED: VANCOMYCIN INJ 750 MG in SODIUM CHLORIDE 0.9% 250 ML IV ONE (12:30)
[2018-07-02] MEDS ORDERED: MORPHINE 4 MG/1 ML VIAL IV PRN (14:04)
[2018-07-02] MEDS ORDERED: LORazepam 2 MG/1 ML VIAL ONE (15:10)
[2018-07-02] MEDS ORDERED: SCOPOLAMINE 1.5 MG PATCH TRANSDERM ONE (15:11)
[2018-07-02] MEDS ORDERED: ATROPINE 1 % OPH SOLN 5 ML BOTTLE SL PRN (15:14)
[2018-07-02] MEDS ORDERED: MORPHINE INJ 100 MG in SODIUM CHLORIDE 0.9% 90 ML IV PRN (15:21)
[2018-07-02] MEDS: LORazepam 2 MG/1 ML VIAL IV PRN ×2 (15:24→15:31)
[2018-07-02] MEDS ORDERED: LORazepam 2 MG/1 ML VIAL IV PRN (16:49)
[2018-07-03] MEDS: MORPHINE 4 MG/1 ML VIAL IV PRN ×6 (00:12→02:00)
[2018-07-03 01:04] VITALS: BP 61/38
[2018-07-07] MEDS ORDERED: AMIODARONE 200 MG TABLET PO SCH (09:00)
== END 2018-07-03 02:12 | disposition expired | DRG 853 ==
LOC: EDBD → EDUNIT# → N.ED 19:01 → N.EDINP 21:53 → SUATTDRO 21:53 → N.CC 23:20
PROVIDERS: ADMIT Internal Medicine; ATTEND Internal Medicine